=== PATIENT | female | born 1960 | race Caucasian/White ===

== ENCOUNTER 2017-01-19 17:03 | Inpatient (IN) ==
--- NOTE | 2017-01-19 17:11 | Emergency Department Note ---
Disposition Clinical Impression: Chest pain Disposition: Still a Patient Condition: Good Referrals: NO,PCP [Primary Care Provider] - Forms: ED Satisfaction Letter General Adult HPI - General Stated complaint: Chest Pain Time Seen by Provider: 01/19/17 17:07 - Related Data Home Medications Medication Instructions Recorded Confirmed Aspirin 81 mg PO DAILY 07/30/15 11/22/16 Budesonide/Formoterol 160/4.5 2 puff IH BIDR 07/30/15 11/22/16 [Symbicort] Clopidogrel [Plavix] 75 mg PO DAILY 07/30/15 11/22/16 Diltiazem [Cardizem] 30 mg PO Q8HR PRN 07/30/15 11/22/16 Febuxostat [Uloric] 40 mg PO DAILY 07/30/15 11/22/16 Furosemide [Lasix] 20 mg PO DAILY PRN 07/30/15 11/22/16 Isosorbide MONOnitrate (24 HR) 120 mg PO BID 07/30/15 11/22/16 [Imdur] Lisinopril [Zestril] 40 mg PO DAILY 07/30/15 11/22/16 Loratadine [Claritin] 10 mg PO DAILY 07/30/15 11/22/16 Methocarbamol [Robaxin] 500 mg PO DAILY PRN 07/30/15 11/22/16 Metoprolol [Lopressor] 75 mg PO BID 07/30/15 11/22/16 Omeprazole [PriLOSEC] 40 mg PO DAILY 07/30/15 11/22/16 Ranolazine [Ranexa] 500 mg PO BID 07/30/15 11/22/16 Previous Rx's Medication Instructions Recorded Mupirocin Calcium [Bactroban] 15 gm TP DAILY #15 cream..g. 06/12/15 Ascorbic Acid [Vitamin C] 1 tab PO DAILY #30 tablet 04/27/16 Ferrous Sulfate [Iron] 1 tab PO DAILY #30 capsule.er 09/10/16 Cholecalciferol (Vitamin D3) 1 tab PO QWEEK #14 tab 10/01/16 [Dialyvite Vitamin D3 Max] Cyanocobalamin (B-12) [Vitamin B12] 1 tab PO DAILY #90 tablet 11/02/16 Rivaroxaban [Xarelto] 1 tab PO DAILY #90 tablet 11/19/16 Allergies Allergy/AdvReac Type Severity Reaction Status Date / Time Erythromycin Base Allergy Anaphylaxis Verified 06/12/15 18:00 propoxyphene [From Darvon] Allergy Hives Verified 06/12/15 18:00 doxycycline AdvReac Difficulty Verified 11/27/16 08:33 Breathing ferric carboxymaltose AdvReac Gastrointestinal Verified 12/31/16 15:47 [From Injectafer] Upset montelukast [From Singulair] AdvReac Confusion Verified 11/27/16 08:33 simvastatin AdvReac Cramping Verified 11/27/16 08:33 of the Muscles Past Medical History - Past Medical History Medical history: Reports: asthma, COPD, hypertension, myocardial infarction Surgical history: Reports: angioplasty/stent, knee replacement Psychiatric history: Reports: anxiety, depression - Social History Smoking Status: Former smoker Smokeless Tobacco Status: No Alcohol use: Reports: none Drug use: Reports: none Course Vital Signs Temperature 97.1 F L 01/19/17 17:11 Pulse Rate 96 01/19/17 17:11 Respiratory Rate 20 01/19/17 17:11 Blood Pressure 176/101 01/19/17 17:11 O2 Sat by Pulse Oximetry 98 01/19/17 17:11 Temperature 97.1 F L 01/19/17 17:11 Pulse Rate 96 01/19/17 17:11 Respiratory Rate 20 01/19/17 17:11 Blood Pressure 176/101 01/19/17 17:11 O2 Sat by Pulse Oximetry 98 01/19/17 17:11 Oxygen Delivery Oxygen Delivery Room Air Attestation Statement - Attestation Attestation: I examined this patient and my medical decision-making was reviewed with the RECEIVING INSPECTOR/PA/Advanced Practice Nurse/Resident Physician. I agree with the documented findings, disposition and treatment plan as described except to the extent set forth below. [id number] time provided Patient presents with centrally located chest pain that radiates to her right chest and axillary region described as a "burning." Symptoms present for the last 2 hours at rest. She has a history of coronary stents deployed 2. She appears slightly anxious on exam. She relates to me that she did and unusual exercise program today involving her right upper extremity. She thinks this may be the cause of her pain 18:31: [address] Teresa at 7 PM pending repeat troponin and ECG. On coming physician to reevaluate patient and provide final disposition
[2017-01-19] MEDS ORDERED: Ondansetron 4 MG/2 ML VIAL IV ONE (17:24)
[2017-01-19] MEDS ORDERED: *HR* Morphine 2 MG/ML SYRINGE IV ONE (17:24)
[2017-01-19] MEDS ORDERED: Aspirin 81 MG TAB.CHEW PO STA (17:29)
--- NOTE | 2017-01-19 17:36 | Emergency Department Note ---
Disposition Clinical Impression: Atypical chest pain Disposition: Still a Patient Condition: Good Referrals: NO,PCP [Primary Care Provider] - Forms: ED Satisfaction Letter Chest Pain HPI - General Chief Complaint: ED Chest Pain Stated Complaint: Chest Pain Time Seen by Provider: 01/19/17 17:07 Source: patient, family Mode of arrival: ambulatory Limitations: no limitations Vital Signs Reviewed: Yes Nursing Notes Reviewed: Yes - History of Present Illness HPI Narrative: 56-year-old female history of hypertension, former smoker pack per day, COPD, DVT on Xarelto, CAD s/p 2 stents presents to the ED for chest pain. Describes a sharp burning sensation in the mid-sternum that radiates to the right axilla. She first noticed it 1300 today after doing new yoga exercises earlier this morning and celebrating her grandson's birthday. She has been carrying babies and moving things which she reports pulling her right arm further back than normal. She repeatedly believes that it is musculoskeletal, possibly overduing it today. Recently got a steroid injection in her right shoulder. Has associated dyspnea and nausea with the chest pain. However with her cardiac history wanted to be evaluated. Continues to have chest pain that is constant and worse with movement or palpation. She took 3 nitro without relief. Took her 81 mg ASA last night. Denies any recent illness, fever, cough, shortness of breath. History of DVT on Xarelto. Denies any recent long distance travel, surgery, hospitalizations. 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 Pt complaint: chest pain Severity scale (1-10): 8 - Related Data Home Medications Medication Instructions Recorded Confirmed Aspirin 81 mg PO DAILY 07/30/15 11/22/16 Budesonide/Formoterol 160/4.5 2 puff IH BIDR 07/30/15 11/22/16 [Symbicort] Clopidogrel [Plavix] 75 mg PO DAILY 07/30/15 11/22/16 Diltiazem [Cardizem] 30 mg PO Q8HR PRN 07/30/15 11/22/16 Febuxostat [Uloric] 40 mg PO DAILY 07/30/15 11/22/16 Furosemide [Lasix] 20 mg PO DAILY PRN 07/30/15 11/22/16 Isosorbide MONOnitrate (24 HR) 120 mg PO BID 07/30/15 11/22/16 [Imdur] Lisinopril [Zestril] 40 mg PO DAILY 07/30/15 11/22/16 Loratadine [Claritin] 10 mg PO DAILY 07/30/15 11/22/16 Methocarbamol [Robaxin] 500 mg PO DAILY PRN 07/30/15 11/22/16 Metoprolol [Lopressor] 75 mg PO BID 07/30/15 11/22/16 Omeprazole [PriLOSEC] 40 mg PO DAILY 07/30/15 11/22/16 Ranolazine [Ranexa] 500 mg PO BID 07/30/15 11/22/16 Previous Rx's Medication Instructions Recorded Mupirocin Calcium [Bactroban] 15 gm TP DAILY #15 cream..g. 06/12/15 Ascorbic Acid [Vitamin C] 1 tab PO DAILY #30 tablet 04/27/16 Ferrous Sulfate [Iron] 1 tab PO DAILY #30 capsule.er 09/10/16 Cholecalciferol (Vitamin D3) 1 tab PO QWEEK #14 tab 10/01/16 [Dialyvite Vitamin D3 Max] Cyanocobalamin (B-12) [Vitamin B12] 1 tab PO DAILY #90 tablet 11/02/16 Rivaroxaban [Xarelto] 1 tab PO DAILY #90 tablet 11/19/16 Allergies Allergy/AdvReac Type Severity Reaction Status Date / Time Erythromycin Base Allergy Anaphylaxis Verified 06/12/15 18:00 propoxyphene [From Darvon] Allergy Hives Verified 06/12/15 18:00 doxycycline AdvReac Difficulty Verified 11/27/16 08:33 Breathing ferric carboxymaltose AdvReac Gastrointestinal Verified 12/31/16 15:47 [From Injectafer] Upset montelukast [From Singulair] AdvReac Confusion Verified 11/27/16 08:33 simvastatin AdvReac Cramping Verified 11/27/16 08:33 of the Muscles All systems ED: reviewed and negative except as stated. Constitutional: Denies: fever, chills Cardiovascular: Reports: chest pain. Denies: palpitations, dyspnea on exertion Respiratory: Denies: cough, dyspnea Gastrointestinal: Reports: nausea. Denies: abdominal pain, vomiting, diarrhea Genitourinary: Denies: urgency Musculoskeletal: Denies: back pain, neck pain Integumentary: Denies: rash, abrasion Neurological: Denies: headache, weakness Psychiatric: Denies: anxiety Chest Pain PMH - Past Medical History Medical history: Reports: asthma, COPD, hypertension, myocardial infarction Surgical history: Reports: angioplasty/stent, knee replacement Psychiatric history: Reports: anxiety, depression - Social History Smoking Status: Former smoker Alcohol use: Reports: none Drug use: Reports: none Physical Exam - General Limitations: no limitations General appearance: alert, in no apparent distress, obese (morbidly) - Head Head exam: atraumatic, normocephalic, normal inspection - Eye Eye exam: Present: normal appearance, PERRL, EOMI - ENT ENT exam: normal exam, normal oropharynx, mucous membranes moist - Neck Neck exam: Present: normal inspection, full ROM, trachea midline - Chest Chest inspection: Present: normal inspection, symmetric chest wall rise, tenderness (right chest wall) - Respiratory Respiratory exam: Present: normal lung sounds bilaterally. Absent: respiratory distress, wheezes - Cardiovascular Cardiovascular exam: Present: regular rate, normal rhythm, normal heart sounds. Absent: systolic murmur, diastolic murmur - Abdominal Exam Abdominal exam: Present: soft (obese), Non-Tender, normal bowel sounds. Absent : tenderness, distention, guarding, rebound, rigidity - Extremities Exam Extremities exam: Present: normal inspection, full ROM, normal capillary refill. Absent: tenderness, pedal edema, calf tenderness - Neurological Exam Neurological exam: Present: alert, oriented X3 - Psychiatric Psychiatric exam: Present: normal affect, normal mood - Skin Skin exam: Present: warm, dry, intact, normal color. Absent: rash, cyanosis Course Course Narrative: 56-year-old female presents with chest pain. Occurred at 1300 today during some lifting and exercise. Pain has been constant is described as a burning sharp sensation radiating to the right axilla. She has taken 3 nitro without relief. Appears uncomfortable. She is hypertensive here, likely secondary to pain and discomfort. Heart's regular rate and rhythm. Tenderness on palpation to the right chest similar to her chest pain at this time. She has full range of motion to upper extremities. Lungs are clear auscultation bilaterally. Her abdomen is obese, soft and nontender nondistended. She has significant cardiac history will check troponin, EKG, chest x-ray basic labs. Morphine and Zofran for pain and nausea. Aspirin 324 mg ordered. HEART score 4 pending troponin. She will be signed out to nighttime team Dr. Huff and Dr. Teresa for further management and final disposition. - Reevaluation(s) Reevaluation #1: Patient presents with atypical chest pain. Pain has subsided. Recommend repeat troponin 2 hours. She will be signed out to nighttime team Dr. Huff and Dr. Teresa for further management and final disposition. Time: 18:38 Vital Signs Temperature 97.1 F L 01/19/17 17:11 Pulse Rate 96 01/19/17 17:11 Respiratory Rate 20 01/19/17 17:11 Blood Pressure 176/101 01/19/17 17:11 O2 Sat by Pulse Oximetry 98 01/19/17 17:11 Temperature 97.1 F L 01/19/17 17:11 Pulse Rate 96 01/19/17 17:11 Respiratory Rate 20 01/19/17 17:11 Blood Pressure 176/101 01/19/17 17:11 O2 Sat by Pulse Oximetry 98 01/19/17 17:11 Oxygen Delivery Oxygen Delivery Room Air Chest Pain - Medical Records Medical records reviewed: Yes I reviewed the patient's medical records. - Lab Data Lab results reviewed: Yes I reviewed the patient's lab results. Result diagrams: 01/19/17 18:30 Lab Results 01/19/17 Range/Units 18:30 WBC 13.5 H (4.3-11.1) K/mcL RBC 3.96 (3.82-4.97) M/mcL Hgb 12.4 (11.5-15.4) g/dL Hct 38.1 (35.3-44.9) % MCV 96.2 (83.0-100.0) fL MCH 31.3 (28.0-33.3) pg MCHC 32.5 (31.6-35.5) g/dL RDW 13.1 (11.5-14.5) % Plt Count 294 (140-400) K/mcL MPV 10.2 (9.4-12.4) fL Immature Gran % 1.4 (0-4) % Seg Neutrophils % 86.9 % Lymphocytes % 7.2 % Monocytes % 3.4 % Eosinophils % 0.7 % Basophils % 0.4 % Neutrophils # 11.8 H (1.6-8.9) K/mcL Lymphocytes # 1.0 (0.6-4.6) K/mcL Monocytes # 0.5 (0.0-1.3) K/mcL Eosinophils # 0.1 (0.0-0.6) K/mcL Basophils # 0.1 (0.0-0.2) K/mcL - Radiology Data Radiology results reviewed: Yes I reviewed the patient's radiology results. Chest X-Ray 01/19/17 17:11 IMPRESSION: No evidence for acute cardiopulmonary process. D/ / Ramin Wynne MD / Ramin Wynne MD Interpreting Provider: Ramin Wynne MD - EKG Data EKG attestation: Yes I reviewed and interpreted this EKG. EKG results narrative: EKG performed 1712 normal sinus rhythm 97 bpm, poor R-R wave progression, normal axis, there are non-specific ST-T wave abnormalities seen in V3. Intervals are within normal limits LA interval 166 QRS 88 QT QTC 323 377. Compared to old EKG performed 05/17/2016 shows non-specific T wave abnormality and good R-R wave progression . No acute ischemic changes. Heart Score - Score History: Slightly Suspicious EKG: Non Specific repolarisation Disturbance Age: 45-65 Risk Factors: Equal/Greater than 3 risk factor or history of atherosclerotic disease S.B.A.R. - [email or web address] Situation: Demographics, MOA Background: Presenting Complaint, Relevant PMH, Meds, & Allergies Assessment: Vital Signs, Course and respsone to treatment, Exam Concerns, Patient/Family Expectation, Pertinant Lab Results, Outstanding Labs Recommendation: Barrier(s) to disposition, Recommendation based on pending studies, treatments, or consults S.B.A.R. Report Given to: Dr. Daria Acevedo Repor Time: 19:00
[2017-01-19 18:42] LABS: Basophils # 0.1 K/mcL (0.0-0.2); Basophils % 0.4 %; Eosinophils # 0.1 K/mcL (0.0-0.6); Eosinophils % 0.7 %; Hematocrit 38.1 % (35.3-44.9); Hemoglobin 12.4 g/dL (11.5-15.4); Immature Granulocytes % 1.4 % (0-4); Lymphocytes % 7.2 %; Mean Corpuscular HGB Conc 32.5 g/dL (31.6-35.5); Mean Corpuscular Hemoglobin 31.3 pg (28.0-33.3); Mean Corpuscular Volume 96.2 fL (83.0-100.0); Mean Platelet Volume 10.2 fL (9.4-12.4); Monocytes # 0.5 K/mcL (0.0-1.3); Monocytes % 3.4 %; Neutrophils # 11.8 K/mcL (1.6-8.9); Platelet Count 294 K/mcL (140-400); Red Blood Count 3.96 M/mcL (3.82-4.97); Red Cell Distribution Width 13.1 % (11.5-14.5); Segmented Neutrophils % 86.9 %
[2017-01-19 18:45] LABS: INR 1.2; Prothrombin Time 13.3 Seconds (9.4-12.1)
[2017-01-19 18:47] LABS: Activated Partial Thrombo Time 36.4 Seconds (26.0-36.0)
[2017-01-19 18:52] LABS: BUN/Creatinine Ratio 16 (6-26); Blood Urea Nitrogen 15 mg/dL (7-20); Carbon Dioxide 22 mEq/L (19-29); Chloride 105 mEq/L (98-109); Glucose 128 mg/dL (70-99); Osmolality,Calculated 286 (280-300); Sodium 137 mEq/L (136-145); eGFR For African Americans > 60 (> 60); eGFR For Non-African Americans > 60 (> 60)
[2017-01-19] MEDS ORDERED: *HR* Morphine 2 MG/ML SYRINGE IVP ONE (19:18)
--- NOTE | 2017-01-19 19:18 | Emergency Department Note ---
Disposition Clinical Impression: Chest pain Qualifiers: Chest pain type: unspecified Qualified Code(s): R07.9 - Chest pain, unspecified Disposition: Admitted As Inpatient Condition: Undetermined Referrals: NO,PCP [Non-Partnered Physician] - Forms: ED Satisfaction Letter Time of Disposition: 19:25 Chest Pain HPI - General Chief Complaint: ED Chest Pain Stated Complaint: Chest Pain Time Seen by Provider: 01/19/17 17:07 Source: patient, family Mode of arrival: ambulatory Limitations: no limitations Vital Signs Reviewed: Yes Nursing Notes Reviewed: Yes - History of Present Illness HPI Narrative: 56-year-old female with CAD, hypertension arrives to [facility] emergency department complaining of bilateral chest pain primarily in the right chest wall radiating to right axilla that began earlier this afternoon. The patient did have some dyspnea, nausea, diaphoresis associated with this. The patient states she had an [place] in the past where she did receive 2 cardiac stents at that time. The patient does state she has been working out recently but states this does not feel like her previous arthritis or muscle aches. Patient did take 4 nitroglycerin prior to arrival to the emergency department which did not help the patient's pain. 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 Onset: during rest Pain Location: left chest, right chest Severity: moderate Severity scale (1-10): 6 Quality: aching, heaviness Pain Radiation: back Improves with: nothing Worsens with: palpation Associated symptoms: Reports: nausea, diaphoresis, dyspnea Treatments prior to arrival chest pain: nitroglycerin - Related Data On Oral Contraceptives: No Home Medications Medication Instructions Recorded Confirmed Aspirin 81 mg PO DAILY 07/30/15 11/22/16 Budesonide/Formoterol 160/4.5 2 puff IH BIDR 07/30/15 11/22/16 [Symbicort] Clopidogrel [Plavix] 75 mg PO DAILY 07/30/15 11/22/16 Diltiazem [Cardizem] 30 mg PO Q8HR PRN 07/30/15 11/22/16 Febuxostat [Uloric] 40 mg PO DAILY 07/30/15 11/22/16 Furosemide [Lasix] 20 mg PO DAILY PRN 07/30/15 11/22/16 Isosorbide MONOnitrate (24 HR) 120 mg PO BID 07/30/15 11/22/16 [Imdur] Lisinopril [Zestril] 40 mg PO DAILY 07/30/15 11/22/16 Loratadine [Claritin] 10 mg PO DAILY 07/30/15 11/22/16 Methocarbamol [Robaxin] 500 mg PO DAILY PRN 07/30/15 11/22/16 Metoprolol [Lopressor] 75 mg PO BID 07/30/15 11/22/16 Omeprazole [PriLOSEC] 40 mg PO DAILY 07/30/15 11/22/16 Ranolazine [Ranexa] 500 mg PO BID 07/30/15 11/22/16 Previous Rx's Medication Instructions Recorded Mupirocin Calcium [Bactroban] 15 gm TP DAILY #15 cream..g. 06/12/15 Ascorbic Acid [Vitamin C] 1 tab PO DAILY #30 tablet 04/27/16 Ferrous Sulfate [Iron] 1 tab PO DAILY #30 capsule.er 09/10/16 Cholecalciferol (Vitamin D3) 1 tab PO QWEEK #14 tab 10/01/16 [Dialyvite Vitamin D3 Max] Cyanocobalamin (B-12) [Vitamin B12] 1 tab PO DAILY #90 tablet 11/02/16 Rivaroxaban [Xarelto] 1 tab PO DAILY #90 tablet 11/19/16 Allergies Allergy/AdvReac Type Severity Reaction Status Date / Time Erythromycin Base Allergy Anaphylaxis Verified 06/12/15 18:00 propoxyphene [From Darvon] Allergy Hives Verified 06/12/15 18:00 doxycycline AdvReac Difficulty Verified 11/27/16 08:33 Breathing ferric carboxymaltose AdvReac Gastrointestinal Verified 12/31/16 15:47 [From Injectafer] Upset montelukast [From Singulair] AdvReac Confusion Verified 11/27/16 08:33 simvastatin AdvReac Cramping Verified 11/27/16 08:33 of the Muscles All systems ED: reviewed and negative except as stated. Constitutional: Denies: fever, chills Cardiovascular: Reports: chest pain. Denies: palpitations, dyspnea on exertion Respiratory: Denies: cough, dyspnea Gastrointestinal: Reports: nausea. Denies: abdominal pain, vomiting, diarrhea Genitourinary: Denies: urgency Musculoskeletal: Denies: back pain, neck pain Integumentary: Denies: rash, abrasion Neurological: Denies: headache, weakness Psychiatric: Denies: anxiety Chest Pain PMH - Past Medical History Medical history: Reports: asthma, COPD, hypertension, myocardial infarction Surgical history: Reports: angioplasty/stent, knee replacement Psychiatric history: Reports: anxiety, depression - Social History Smoking Status: Former smoker Alcohol use: Reports: none Drug use: Reports: none Physical Exam Physical Exam: General: Patient alert, in mild acute distress due to pain, not lethargic, patient is diaphoretic HEENT: Head normal inspection, atraumatic, PERRLA, oropharynx grossly intact and normal, trachea midline, no JVD Chest: Nontraumatic, chest wall is tender to palpation, normal chest rise CV: RRR with no murmurs, rubs, gallops Respiratory: Breath sounds on auscultation bilaterally, no rales, rhonchi, wheezes. Abdomen: Normal inspection, Normal bowel sounds 4 quadrants, nontender to palpation : Patient deferred Extremities: Normal inspection, full range of motion, appropriate pulses, capillary refill under 2 seconds Neurological: Patient alert and oriented 3, cranial nerves II through XII grossly intact, GCS 15 Skin: Warm, intact, no rashes noted - General Limitations: no limitations General appearance: alert, in no apparent distress, obese (morbidly) Course Vital Signs Temperature 97.1 F L 01/19/17 17:11 Pulse Rate 96 01/19/17 17:11 Respiratory Rate 20 01/19/17 17:11 Blood Pressure 176/101 01/19/17 17:11 O2 Sat by Pulse Oximetry 98 01/19/17 17:11 Temperature 97.1 F L 01/19/17 17:11 Pulse Rate 91 01/19/17 18:56 Respiratory Rate 20 01/19/17 18:56 Blood Pressure 166/97 01/19/17 19:09 O2 Sat by Pulse Oximetry 95 01/19/17 18:56 Oxygen Delivery Oxygen Delivery Room Air Chest Pain - MDM Narrative Medical decision making narrative: Patient has a heart score of 5 at this time. The patient's chest pain is not well controlled. She is received 4 nitroglycerin prior to arrival 6 nitroglycerin at roughly 1520, we will be administering another 6 of morphine at this time. The patient is diaphoretic, she has ST depression noted on leads V3. The patient is alone Xarelto at this time. The patient states that she is mildly nauseated at this time. Given the patient's symptoms and past medical history of heart disease combined with her diaphoresis the patient will be admitted to the hospital for observation. Accepted by Dr. Olivares - Lab Data Lab results reviewed: Yes I reviewed the patient's lab results. Result diagrams: 01/19/17 18:30 01/19/17 18:30 Lab Results 01/19/17 01/19/17 01/19/17 Range/Units 18:30 18:30 18:30 WBC 13.5 H (4.3-11.1) K/mcL RBC 3.96 (3.82-4.97) M/mcL Hgb 12.4 (11.5-15.4) g/dL Hct 38.1 (35.3-44.9) % MCV 96.2 (83.0-100.0) fL MCH 31.3 (28.0-33.3) pg MCHC 32.5 (31.6-35.5) g/dL RDW 13.1 (11.5-14.5) % Plt Count 294 (140-400) K/mcL MPV 10.2 (9.4-12.4) fL Immature Gran % 1.4 (0-4) % Seg Neutrophils % 86.9 % Lymphocytes % 7.2 % Monocytes % 3.4 % Eosinophils % 0.7 % Basophils % 0.4 % Neutrophils # 11.8 H (1.6-8.9) K/mcL Lymphocytes # 1.0 (0.6-4.6) K/mcL Monocytes # 0.5 (0.0-1.3) K/mcL Eosinophils # 0.1 (0.0-0.6) K/mcL Basophils # 0.1 (0.0-0.2) K/mcL PT 13.3 H (9.4-12.1) Seconds INR 1.2 APTT 36.4 H (26.0-36.0) Seconds Sodium 137 (136-145) mEq/L Potassium 5.0 H (3.5-4.5) mEq/L Chloride 105 (98-109) mEq/L Carbon Dioxide 22 (19-29) mEq/L BUN 15 (7-20) mg/dL Creatinine 0.91 (0.57-1.11) mg/dL Est GFR ( Amer) > 60 (> 60) Est GFR (Non-Af Amer) > 60 (> 60) BUN/Creatinine Ratio 16 (6-26) Glucose 128 H (70-99) mg/dL Calculated Osmolality 286 (280-300) Calcium 9.0 (8.6-10.8) mg/dL Troponin I (0-0.03) ng/mL 01/19/17 Range/Units 18:30 WBC (4.3-11.1) K/mcL RBC (3.82-4.97) M/mcL Hgb (11.5-15.4) g/dL Hct (35.3-44.9) % MCV (83.0-100.0) fL MCH (28.0-33.3) pg MCHC (31.6-35.5) g/dL RDW (11.5-14.5) % Plt Count (140-400) K/mcL MPV (9.4-12.4) fL Immature Gran % (0-4) % Seg Neutrophils % % Lymphocytes % % Monocytes % % Eosinophils % % Basophils % % Neutrophils # (1.6-8.9) K/mcL Lymphocytes # (0.6-4.6) K/mcL Monocytes # (0.0-1.3) K/mcL Eosinophils # (0.0-0.6) K/mcL Basophils # (0.0-0.2) K/mcL PT (9.4-12.1) Seconds INR APTT (26.0-36.0) Seconds Sodium (136-145) mEq/L Potassium (3.5-4.5) mEq/L Chloride (98-109) mEq/L Carbon Dioxide (19-29) mEq/L BUN (7-20) mg/dL Creatinine (0.57-1.11) mg/dL Est GFR ( Amer) (> 60) Est GFR (Non-Af Amer) (> 60) BUN/Creatinine Ratio (6-26) Glucose (70-99) mg/dL Calculated Osmolality (280-300) Calcium (8.6-10.8) mg/dL Troponin I 0.01 (0-0.03) ng/mL - Radiology Data Radiology results reviewed: Yes I reviewed the patient's radiology results. - EKG Data EKG attestation: Yes I reviewed and interpreted this EKG. EKG results narrative: Heart rate 97 bpm. ME interval 166 ms. QTC 377 ms. Normal axis. Normal sinus rhythm. No ST elevation there is small amount of ST depression noted in lead V3 which is new from from 06/17/2016. Heart Score - Score History: Moderately Suspicious EKG: Non Specific repolarisation Disturbance Age: 45-65 Risk Factors: Equal/Greater than 3 risk factor or history of atherosclerotic disease Troponin: Less than normal limit HEART Score Total: 5
[2017-01-19] MEDS ORDERED: Ondansetron 4 MG/2 ML VIAL IVP ONE (20:06)
[2017-01-20] MEDS ORDERED: *HR* Morphine 2 MG/ML SYRINGE IVP ONE (03:48)
[2017-01-20] MEDS ORDERED: *HR* Morphine 2 MG/ML SYRINGE ONE (03:51)
[2017-01-20] MEDS ORDERED: Ondansetron 4 MG/2 ML VIAL IVP PRN (03:57)
[2017-01-20] MEDS ORDERED: *HR* Morphine 2 MG/ML SYRINGE IVP PRN ×2 (03:57→05:05)
[2017-01-20] MEDS ORDERED: Naloxone 0.4 MG/ML INJ IVP PRN (03:57)
--- NOTE | 2017-01-20 04:16 | Internal Med History&Physical ---
Date of Encounter: 01/20/17 Time of Encounter: 04:10 Assessment and Plan (1) Chest pain Current visit: Yes Status: Acute 1. I suspect this is musculoskeletal in nature. 2. Will cycle troponins, EKG's, and order ECHO. 3. Pain control and re-evaluate as work-up in progress. Qualifiers: Chest pain type: intercostal pain Qualified Code(s): R07.82 - Intercostal pain (2) CAD (coronary artery disease) Current visit: No Status: Chronic 1. Cycle troponins and EKG's given history of CAD. 2. Verify and resume home meds. 3. Monitor closely and consult cardiology if symptoms persists and/or EKG changes are significant. Qualifiers: Coronary Disease-Associated Artery/Lesion type: [place] artery [place] vs. transplanted heart: [place] heart Associated angina: without angina Qualified Code(s): I25.10 - Atherosclerotic heart disease of [place] coronary artery without angina pectoris (3) DVT prophylaxis Current visit: No Status: Acute 1. On Xarelto per home dosing. Internal Medicine - H&P: HPI Chief complaint: chest pain Admitted From: Emergency Dept Plans for Post Hospital Care: Home History of present illness: Ms. Anguiano is a 56 year old female who presents with complaints of chest pain and dyspnea. She has been having this pain off and on for months but it was worse tonight, and this prompted her to come to the ER. Workup was negative. Nonetheless, she was admitted to the hospitalist service. Upon my assessment of the patient, she is complaining of pain in her right side of her chest. She has some associated nausea and diaphoresis. She states the pain is not the same as her prior anginal pain and/or TN. She denies any hemoptysis. She has some mild exertional dyspnea. She denies any fevers, chills, cough, or chest congestion. She has been battling right shoulder issues and has been referred for shoulder surgery in the recent past. She denies any known gallbladder problems. She states she has been worked up for gallbladder numerous times without any diagnosis. Food does not seem to exacerbate her chest pain symptoms. Past Med Surg Social Fam HX - Past Medical History Attestation: Yes The following information was validated with the patient. Source: patient, old records reviewed Medical history: asthma, COPD, DVT, hypertension, myocardial infarction, other ( PE) Psychiatric history: anxiety, depression - Past Surgical History Surgical History: angioplasty/stent, knee replacement - Social History Smoking Status: Former smoker Smokeless Tobacco Status: No Alcohol use: none Drug use: none Current living situation: Home Activity Level: Independent ambulation Recent Out of Country Travel Within the Last 8 Weeks: No - Family History Father Living Status: Hx Family Cancer: Yes Internal Medicine - H&P: Meds Mupirocin Calcium [Bactroban] 15 gm TP DAILY #15 cream..g. 06/12/15 [Rx] Aspirin 81 mg PO DAILY 07/30/15 [History] Budesonide/Formoterol 160/4.5 [Symbicort] 2 puff IH BIDR 07/30/15 [History] Clopidogrel [Plavix] 75 mg PO DAILY 07/30/15 [History] Diltiazem [Cardizem] 30 mg PO Q8HR PRN 07/30/15 [History] Febuxostat [Uloric] 40 mg PO DAILY 07/30/15 [History] Furosemide [Lasix] 20 mg PO DAILY PRN 07/30/15 [History] Isosorbide MONOnitrate (24 HR) [Imdur] 120 mg PO BID 07/30/15 [History] Lisinopril [Zestril] 40 mg PO DAILY 07/30/15 [History] Loratadine [Claritin] 10 mg PO DAILY 07/30/15 [History] Methocarbamol [Robaxin] 500 mg PO DAILY PRN 07/30/15 [History] Metoprolol [Lopressor] 75 mg PO BID 07/30/15 [History] Omeprazole [PriLOSEC] 40 mg PO DAILY 07/30/15 [History] Ranolazine [Ranexa] 500 mg PO BID 07/30/15 [History] Ascorbic Acid [Vitamin C] 1 tab PO DAILY #30 tablet 04/27/16 [Rx] Ferrous Sulfate [Iron] 1 tab PO DAILY #30 capsule.er 09/10/16 [Rx] Cholecalciferol (Vitamin D3) [Dialyvite Vitamin D3 Max] 1 tab PO QWEEK #14 tab 10/01/16 [Rx] Cyanocobalamin (B-12) [Vitamin B12] 1 tab PO DAILY #90 tablet 11/02/16 [Rx] Rivaroxaban [Xarelto] 1 tab PO DAILY #90 tablet 11/19/16 [Rx] Allergies Erythromycin Base Allergy (Verified 06/12/15 18:00) Anaphylaxis propoxyphene [From Darvon] Allergy (Verified 06/12/15 18:00) Hives doxycycline Adverse Reaction (Verified 11/27/16 08:33) Difficulty Breathing ferric carboxymaltose [From Injectafer] Adverse Reaction (Verified 12/31/16 15: 47) Gastrointestinal Upset montelukast [From Singulair] Adverse Reaction (Verified 11/27/16 08:33) Confusion simvastatin Adverse Reaction (Verified 11/27/16 08:33) Cramping of the Muscles - Constitutional Constitutional: no chills, no fever(s), no night sweats - EENT Eyes: no blurry vision, no change in vision Ears: no ear pain, no tinnitus Nose, mouth and throat: no nasal congestion, no sinus pressure, no sore throat - Cardiovascular Cardiovascular ROS IM: chest pain, diaphoresis, dyspnea, no lightheadedness, no palpitations, no syncope - Respiratory Respiratory: no cough, no hemoptysis, no wheezing, no chest congestion, no excessive phlegm production - Gastrointestinal Gastrointestinal: abdominal pain (RUQ), no diarrhea, no hematemesis, no hematochezia, no melena, no nausea, no vomiting - Genitourinary Genitourinary: no dysuria, no flank pain, no hematuria - Musculoskeletal Musculoskeletal ROS IM: no back pain, no joint swelling - Integumentary Integumentary IM: no rash, no jaundice - Neurological Neurological ROS: no disequilibrium, no dizziness, no focal weakness, no frequent falls - Psychiatric Psychiatric: no anxiety, no depression - Endocrine Endocrine IM: no polydipsia, no polyuria - Hematologic/Lymphatic Hematologic/Lymphatic: easy bruising - Allergic/Immunologic Allergic/Immunologic: no wheezing, no GI upset with certain foods - Constitutional Vitals: Temp Pulse Resp BP Pulse Ox 97.5 F L 84 16 128/85 96 01/20/17 00:23 01/20/17 00:23 01/20/17 00:23 01/20/17 00:23 01/20/17 00:23 General appearance: Present: cooperative, mild distress, A&O X 3, pleasant - Head Head exam: Present: atraumatic, normal inspection - Expanded Head Exam Head exam expanded: Absent: abrasion, contusion, general tenderness - Eye Eye exam: Present: EOMI, normal appearance, PERRL. Absent: scleral icterus Pupils: Present: normal accommodation - ENT ENT exam: Present: normal exam, normal oropharynx - Neck Neck exam general surgery: Present: full ROM, supple. Absent: lymphadenopathy, tenderness, nuchal rigidity - Expanded Neck Exam Neck exam: Present: carotid bruit - Respiratory Respiratory exam: Present: chest wall tenderness (pain easily reproducible along RUSB), CTAB. Absent: accessory muscle use, rales, respiratory distress, rhonchi, wheezes - Cardiovascular Cardiovascular exam: Present: distant heart sounds, RRR, +S1, +S2. Absent: diastolic murmur, systolic murmur - GI/Abdominal GI/Abdominal exam: Present: normal bowel sounds, soft. Absent: guarding, hepatomegaly, rebound, splenomegaly, tenderness Additional comments: obese - Extremities Exam Extremities exam: Present: full ROM, warm. Absent: calf tenderness, joint swelling, pedal edema - Back Exam Back exam: Present: normal inspection. Absent: CVA tenderness (L), CVA tenderness (R) - Neurological Exam Neurological exam: Present: alert, CN II-XII intact, oriented X3, no focal deficits - Psychiatric Psychiatric exam: Present: normal affect, normal mood - Skin Skin exam: Present: dry, warm. Absent: rash Internal Med - H&P Results - Labs CBC & Chem 7: 01/19/17 18:30 01/19/17 18:30 - EKG Data -: EKG Interpreted by Myself EKG shows normal: sinus rhythm - EKG Data Prior EKG available for review: yes EKG comments: 01/20/17 04:26 Sinus rhythm with subtle ST-T depression in V4-V6. - Impressions Sinus rhythm; Subtle ST-T changes laterally. - Diagnostic Studies Chest x-ray Status: image reviewed by me (negative) - VTE Reasons for not Prescribing Prophylaxis: Not indicated-Anticoagulated or INR therapeutic
[2017-01-20] MEDS: 0.9 % Sodium Chloride 1,000 ML IVC SCH ×3 (04:40→18:19)
[2017-01-20] MEDS: Pantoprazole 40 MG VIAL IVP SCH (04:40)
[2017-01-20 05:44] LABS: Basophils # 0.1 K/mcL (0.0-0.2); Basophils % 0.5 %; Eosinophils # 0.1 K/mcL (0.0-0.6); Eosinophils % 0.4 %; Hematocrit 40.8 % (35.3-44.9); Hemoglobin 12.6 g/dL (11.5-15.4); Immature Granulocytes % 1.4 % (0-4); Lymphocytes # 1.4 K/mcL (0.6-4.6); Lymphocytes % 12.6 %; Mean Corpuscular HGB Conc 30.9 g/dL (31.6-35.5); Mean Corpuscular Hemoglobin 30.1 pg (28.0-33.3); Mean Corpuscular Volume 97.6 fL (83.0-100.0); Mean Platelet Volume 10.2 fL (9.4-12.4); Monocytes # 0.6 K/mcL (0.0-1.3); Monocytes % 4.8 %; Neutrophils # 9.1 K/mcL (1.6-8.9); Platelet Count 323 K/mcL (140-400); Red Blood Count 4.18 M/mcL (3.82-4.97); Segmented Neutrophils % 80.3 %
[2017-01-20 06:09] LABS: Alanine Aminotransferase 56 Units/L (0-55); Albumin 3.6 g/dL (3.5-5.0); Alkaline Phosphatase 153 Units/L (38-126); Aspartate Amino Transferase 37 Units/L (5-34); BUN/Creatinine Ratio 15 (6-26); Bilirubin,Total 0.3 mg/dL (0.2-1.2); Blood Urea Nitrogen 13 mg/dL (7-20); Calcium 9.3 mg/dL (8.6-10.8); Carbon Dioxide 20 mEq/L (19-29); Chloride 105 mEq/L (98-109); Chol/HDL Ratio 4.8 (0-4.9); Cholesterol 246 mg/dL (< 200); Globulin 3.7 g/dL (2.4-3.5); Glucose 123 mg/dL (70-99); HDL Cholesterol 51 mg/dL (40-59); LDL Cholesterol,Calculated 171 mg/dL (0-99); Magnesium 2.2 mg/dL (1.6-2.6); Osmolality,Calculated 287 (280-300); Potassium 4.6 mEq/L (3.5-4.5); Sodium 138 mEq/L (136-145); Total Protein 7.3 g/dL (6.0-8.3); Triglycerides 122 mg/dL (< 150); eGFR For African Americans > 60 (> 60); eGFR For Non-African Americans > 60 (> 60)
[2017-01-20] MEDS ORDERED: *HR* Promethazine 25 MG/ML VIAL IVP PRN (06:17)
[2017-01-20] MEDS ORDERED: Nitroglycerin 1 INCH/GM PACKET TP ONE (06:26)
[2017-01-20] MEDS ORDERED: Nitroglycerin 1 INCH/GM PACKET ONE (06:32)
[2017-01-20] MEDS: *HR* HYDROmorphone (PF) 1 MG/ML SYRINGE IVP PRN ×3 (06:34→23:43)
[2017-01-20] MEDS: Budesonide/Formoterol 160/4.5 MDI IH SCH ×2 (07:50→21:53)
[2017-01-20] MEDS: Ranolazine 500 MG TAB.ER.12H PO SCH ×2 (09:54→22:19)
[2017-01-20] MEDS: Aspirin 81 MG TAB.CHEW PO SCH (09:54)
[2017-01-20] MEDS: Isosorbide MONOnitrate (24 HR) 60 MG TAB.ER.24H PO SCH ×2 (09:54→22:20)
--- NOTE | 2017-01-20 09:54 | Cardiology Consult Note ---
Date of Encounter: 01/20/17 Time of Encounter: 09:52 Assessment and Plan (1) NSTEMI (non-ST elevated myocardial infarction) Current Visit: Yes Status: Acute Troponins 0.00, 0.62. No other explanation for troponin elevation. Symptoms largely atypical, chest pain is reproducible. No significant EKG changes. Known CAD hx with remote hx of PCI and most recent LHC in 2012--at that time Proximal LAD had patent stents present from a previous procedure. There was 30% stenosis in the Mid LAD, 30% stenosis in the Mid Circumflex, 40% stenosis in the 1st Marginal, 50% stenosis in the Mid RCA. Given elevated troponin and known CAD hx, recommend [facility] to further evaluate. R/B /A discussed and pt agrees to proceed. Last dose of Xarelto yesterday morning. Check echo as well. Echo 2014 EF preserved. Not on heparin gtt since she had Xarelto yesterday morning. ASA, Plavix, Statin, BB, GEMA-I. 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 On Xarelto 20mg daily at home, last dose received yesterday morning. LHC today. Plan to resume Xarelto after. Pt currently on triple therapy. Will re- evaluate if Plavix is necessary after [facility]. Qualifiers: DVT location: lower extremity Affected thrombotic vein of extremity: unspecified vein of extremity Laterality: unspecified laterality Chronicity : unspecified Qualified Code(s): I82.409 - Acute embolism and thrombosis of unspecified deep veins of unspecified lower extremity (3) CAD (coronary artery disease) Current Visit: No Status: Chronic Hx of Prox LAD stent. [facility] 2012 without intervention. ASA, Plavix, Statin, BB, GEMA-I, nitrates. Qualifiers: Coronary Disease-Associated Artery/Lesion type: [place] artery [place] vs. transplanted heart: [place] heart Associated angina: without angina Qualified Code(s): I25.10 - Atherosclerotic heart disease of [place] coronary artery without angina pectoris Discussion w patient/family: The assessment and plan as outlined above was discussed with the patient and/or family members who expressed understanding and agreement. All questions were answered. Thank you for involving us in the care of your patient. Please call with any questions. I will discuss all the above with Dr. Guajardo and make changes as necessary. History of Present Illness Consult date: 01/20/17 Requesting physician: Tony Myers Consult reason: elevated troponin Chief complaint: chest pain History of present illness: Ms. Anguiano is a 56 year old female with PMH of CAD s/p PCI in remote past, asthma /COPD, DVT, HTN that presented to ED yesterday with complaints of chest pain. She reports she got up to shower yesterday, tried to do some yoga poses and got pain in her right arm and chest. She brushed it off and went about her day, but the chest pain continued to worsen. It is described as pressure. It worsened after she ate and she started having pain between her shoulder blades, experienced nausea and diaphoresis. States she took 3 nitro with minimal relief after 3rd. Initial troponin negative, then 0.62 and cardiology was consulted. Recent CV testing: Echo 03/03/15 EF 60%, mild diastolic dysfunction. C 08/24/13 Impressions: There is mild to moderate three vessel coronary artery disease. The left ventricle is normal and has normal contractility, EF 55 %. The LMCA is angiographically free of disease. The Proximal LAD has patent stents present from a previous procedure. There is a 30% stenosis in the Mid LAD. There is a 30% stenosis in the Mid Circumflex. There is a 40% stenosis in the 1st Marginal. There is a 50% stenosis in the Mid RCA. Past Med Surg Social Fam HX - Past Medical History Medical history: asthma, COPD, DVT, hypertension, myocardial infarction, other ( PE) Psychiatric history: anxiety, depression - Past Surgical History Surgical History: angioplasty/stent, knee replacement - Social History Smoking Status: Former smoker Smokeless Tobacco Status: No Alcohol use: none Drug use: none - Family History Father Living Status: Hx Family Cancer: Yes Medications and Allergies Mupirocin Calcium [Bactroban] 15 gm TP DAILY #15 cream..g. 06/12/15 [Rx] Aspirin 81 mg PO DAILY 07/30/15 [History] Budesonide/Formoterol 160/4.5 [Symbicort] 2 puff IH BIDR 07/30/15 [History] Clopidogrel [Plavix] 75 mg PO DAILY 07/30/15 [History] Diltiazem [Cardizem] 30 mg PO Q8HR PRN 07/30/15 [History] Febuxostat [Uloric] 40 mg PO DAILY 07/30/15 [History] Furosemide [Lasix] 20 mg PO DAILY 07/30/15 [History] Isosorbide MONOnitrate (24 HR) [Imdur] 120 mg PO BID 07/30/15 [History] Lisinopril [Zestril] 40 mg PO DAILY 07/30/15 [History] Loratadine [Claritin] 10 mg PO DAILY 07/30/15 [History] Methocarbamol [Robaxin] 500 mg PO TID 07/30/15 [History] Metoprolol [Lopressor] 75 mg PO BID 07/30/15 [History] Omeprazole [PriLOSEC] 40 mg PO DAILY 07/30/15 [History] Ranolazine [Ranexa] 500 mg PO BID 07/30/15 [History] Ascorbic Acid [Vitamin C] 1 tab PO DAILY #30 tablet 04/27/16 [Rx] Ferrous Sulfate [Iron] 1 tab PO DAILY #30 capsule.er 09/10/16 [Rx] Cholecalciferol (Vitamin D3) [Dialyvite Vitamin D3 Max] 1 tab PO QWEEK #14 tab 10/01/16 [Rx] Cyanocobalamin (B-12) [Vitamin B12] 1 tab PO DAILY #90 tablet 11/02/16 [Rx] Rivaroxaban [Xarelto] 1 tab PO DAILY #90 tablet 11/19/16 [Rx] Allergies Erythromycin Base Allergy (Verified 06/12/15 18:00) Anaphylaxis propoxyphene [From Darvon] Allergy (Verified 06/12/15 18:00) Hives doxycycline Adverse Reaction (Verified 11/27/16 08:33) Difficulty Breathing ferric carboxymaltose [From Injectafer] Adverse Reaction (Verified 12/31/16 15: 47) Gastrointestinal Upset montelukast [From Singulair] Adverse Reaction (Verified 11/27/16 08:33) Confusion simvastatin Adverse Reaction (Verified 11/27/16 08:33) Cramping of the Muscles All Systems Review: A 10-system review of systems was performed and is negative for pertinent findings except as documented above in the HPI. - Constitutional Constitutional: fatigue - Cardiovascular Cardiovascular: as per HPI, chest pain at rest, diaphoresis, dyspnea on exertion - Respiratory Respiratory: dyspnea - Gastrointestinal Gastrointestinal: nausea Physical Examination Vital Signs, Last 4 Hours Temp Pulse Resp BP Pulse Ox 01/20/17 07:51 18 96 01/20/17 07:34 96.3 F L 105 20 141/89 97 Vital Signs Temp Pulse Resp BP Pulse Ox 01/20/17 07:51 18 96 01/20/17 07:34 96.3 F L 105 20 141/89 97 01/20/17 04:13 97.5 F L 99 16 163/98 97 01/20/17 00:23 97.5 F L 84 16 128/85 96 01/19/17 23:30 95 01/19/17 21:40 97.4 F L 97 16 92/61 95 01/19/17 21:09 16 158/71 01/19/17 19:09 166/97 01/19/17 18:56 91 20 95 01/19/17 17:11 97.1 F L 96 20 176/101 98 Intake and Output 01/19/17 01/20/17 01/20/17 23:59 07:59 15:59 Output Total 600 / 600 Balance -600 / -600 Output: Urine 600 / 600 Other: Meal NPO Weight 166.3 kg 166.3 kg Patient Weight 01/20/17 23:59 Weight 166.3 kg General: Conversant, No Apparent Distress HEENT: Atraumatic, Normocephaly, Mucus Membranes Moist Neck: No JVD, Normal carotid pulses Cardiac: Reg Rate and Rhythm, Normal S1 and S2, No Murmur Lungs: Other (diminished) Neuro: Alert and responsive, No focal deficits noted Abdomen: Soft, Non-Tender Skin: No rashes noted on visualized skin Musculoskeletal: No Chest Wall Tenderness Extremities: No Clubbing, No Cyanosis, No Edema, Normal Pulses Results 01/20/17 04:43 01/20/17 04:43 Lab Results 01/20/17 01/20/17 01/20/17 04:43 04:43 04:43 WBC 11.4 H Hgb 12.6 Hct 40.8 Plt Count 323 Sodium 138 Potassium 4.6 H Chloride 105 Carbon Dioxide 20 BUN 13 Creatinine 0.86 Glucose 123 H Calcium 9.3 Magnesium 2.2 Total Bilirubin 0.3 AST 37 H ALT 56 H Alkaline Phosphatase 153 H Troponin I 0.62 H* Short CBC 01/20/17 01/20/17 01/20/17 Range/Units 04:43 04:43 04:43 WBC 11.4 H (4.3-11.1) K/mcL RBC 4.18 (3.82-4.97) M/mcL Hgb 12.6 (11.5-15.4) g/dL Hct 40.8 (35.3-44.9) % MCV 97.6 (83.0-100.0) fL MCH 30.1 (28.0-33.3) pg MCHC 30.9 L (31.6-35.5) g/dL RDW 13.0 (11.5-14.5) % Plt Count 323 (140-400) K/mcL MPV 10.2 (9.4-12.4) fL Immature Gran % 1.4 (0-4) % Seg Neutrophils % 80.3 % Lymphocytes % 12.6 % Monocytes % 4.8 % Eosinophils % 0.4 % Basophils % 0.5 % Neutrophils # 9.1 H (1.6-8.9) K/mcL Lymphocytes # 1.4 (0.6-4.6) K/mcL Monocytes # 0.6 (0.0-1.3) K/mcL Eosinophils # 0.1 (0.0-0.6) K/mcL Basophils # 0.1 (0.0-0.2) K/mcL PT (9.4-12.1) Seconds INR APTT (26.0-36.0) Seconds Sodium 138 (136-145) mEq/L Potassium 4.6 H (3.5-4.5) mEq/L Chloride 105 (98-109) mEq/L Carbon Dioxide 20 (19-29) mEq/L BUN 13 (7-20) mg/dL Creatinine 0.86 (0.57-1.11) mg/dL Est GFR ( Amer) > 60 (> 60) Est GFR (Non-Af Amer) > 60 (> 60) BUN/Creatinine Ratio 15 (6-26) Glucose 123 H (70-99) mg/dL Calculated Osmolality 287 (280-300) Calcium 9.3 (8.6-10.8) mg/dL Magnesium 2.2 (1.6-2.6) mg/dL Total Bilirubin 0.3 (0.2-1.2) mg/dL AST 37 H (5-34) Units/L ALT 56 H (0-55) Units/L Alkaline Phosphatase 153 H (38-126) Units/L Troponin I 0.62 H* (0-0.03) ng/mL Serum Total Protein 7.3 (6.0-8.3) g/dL Albumin 3.6 (3.5-5.0) g/dL Globulin 3.7 H (2.4-3.5) g/dL Albumin/Globulin Ratio 1.0 L (1.1-2.2) Triglycerides 122 (< 150) mg/dL Cholesterol 246 H (< 200) mg/dL LDL Cholesterol, Calc 171 H (0-99) mg/dL VLDL Cholesterol, Calc 24 (< 31) mg/dL HDL Cholesterol 51 (40-59) mg/dL Cholesterol/HDL Ratio 4.8 (0-4.9) 01/19/17 01/19/17 01/19/17 Range/Units 18:30 18:30 18:30 WBC 13.5 H (4.3-11.1) K/mcL RBC 3.96 (3.82-4.97) M/mcL Hgb 12.4 (11.5-15.4) g/dL Hct 38.1 (35.3-44.9) % MCV 96.2 (83.0-100.0) fL MCH 31.3 (28.0-33.3) pg MCHC 32.5 (31.6-35.5) g/dL RDW 13.1 (11.5-14.5) % Plt Count 294 (140-400) K/mcL MPV 10.2 (9.4-12.4) fL Immature Gran % 1.4 (0-4) % Seg Neutrophils % 86.9 % Lymphocytes % 7.2 % Monocytes % 3.4 % Eosinophils % 0.7 % Basophils % 0.4 % Neutrophils # 11.8 H (1.6-8.9) K/mcL Lymphocytes # 1.0 (0.6-4.6) K/mcL Monocytes # 0.5 (0.0-1.3) K/mcL Eosinophils # 0.1 (0.0-0.6) K/mcL Basophils # 0.1 (0.0-0.2) K/mcL PT (9.4-12.1) Seconds INR APTT (26.0-36.0) Seconds Sodium 137 (136-145) mEq/L Potassium 5.0 H (3.5-4.5) mEq/L Chloride 105 (98-109) mEq/L Carbon Dioxide 22 (19-29) mEq/L BUN 15 (7-20) mg/dL Creatinine 0.91 (0.57-1.11) mg/dL Est GFR ( Amer) > 60 (> 60) Est GFR (Non-Af Amer) > 60 (> 60) BUN/Creatinine Ratio 16 (6-26) Glucose 128 H (70-99) mg/dL Calculated Osmolality 286 (280-300) Calcium 9.0 (8.6-10.8) mg/dL Magnesium (1.6-2.6) mg/dL Total Bilirubin (0.2-1.2) mg/dL AST (5-34) Units/L ALT (0-55) Units/L Alkaline Phosphatase (38-126) Units/L Troponin I 0.01 (0-0.03) ng/mL Serum Total Protein (6.0-8.3) g/dL Albumin (3.5-5.0) g/dL Globulin (2.4-3.5) g/dL Albumin/Globulin Ratio (1.1-2.2) Triglycerides (< 150) mg/dL Cholesterol (< 200) mg/dL LDL Cholesterol, Calc (0-99) mg/dL VLDL Cholesterol, Calc (< 31) mg/dL HDL Cholesterol (40-59) mg/dL Cholesterol/HDL Ratio (0-4.9) /05/30 Range/Units 18:30 WBC (4.3-11.1) K/mcL RBC (3.82-4.97) M/mcL Hgb (11.5-15.4) g/dL Hct (35.3-44.9) % MCV (83.0-100.0) fL MCH (28.0-33.3) pg MCHC (31.6-35.5) g/dL RDW (11.5-14.5) % Plt Count (140-400) K/mcL MPV (9.4-12.4) fL Immature Gran % (0-4) % Seg Neutrophils % % Lymphocytes % % Monocytes % % Eosinophils % % Basophils % % Neutrophils # (1.6-8.9) K/mcL Lymphocytes # (0.6-4.6) K/mcL Monocytes # (0.0-1.3) K/mcL Eosinophils # (0.0-0.6) K/mcL Basophils # (0.0-0.2) K/mcL PT 13.3 H (9.4-12.1) Seconds INR 1.2 APTT 36.4 H (26.0-36.0) Seconds Sodium (136-145) mEq/L Potassium (3.5-4.5) mEq/L Chloride (98-109) mEq/L Carbon Dioxide (19-29) mEq/L BUN (7-20) mg/dL Creatinine (0.57-1.11) mg/dL Est GFR ( Amer) (> 60) Est GFR (Non-Af Amer) (> 60) BUN/Creatinine Ratio (6-26) Glucose (70-99) mg/dL Calculated Osmolality (280-300) Calcium (8.6-10.8) mg/dL Magnesium (1.6-2.6) mg/dL Total Bilirubin (0.2-1.2) mg/dL AST (5-34) Units/L ALT (0-55) Units/L Alkaline Phosphatase (38-126) Units/L Troponin I (0-0.03) ng/mL Serum Total Protein (6.0-8.3) g/dL Albumin (3.5-5.0) g/dL Globulin (2.4-3.5) g/dL Albumin/Globulin Ratio (1.1-2.2) Triglycerides (< 150) mg/dL Cholesterol (< 200) mg/dL LDL Cholesterol, Calc (0-99) mg/dL VLDL Cholesterol, Calc (< 31) mg/dL HDL Cholesterol (40-59) mg/dL Cholesterol/HDL Ratio (0-4.9) BMP 01/20/17 01/19/17 Range/Units 04:43 18:30 Sodium 138 137 (136-145) mEq/L Potassium 4.6 H 5.0 H (3.5-4.5) mEq/L Chloride 105 105 (98-109) mEq/L Carbon Dioxide 20 22 (19-29) mEq/L BUN 13 15 (7-20) mg/dL Creatinine 0.86 0.91 (0.57-1.11) mg/dL Glucose 123 H 128 H (70-99) mg/dL Calcium 9.3 9.0 (8.6-10.8) mg/dL Cardiac Enzymes 01/20/17 01/19/17 Range/Units 04:43 18:30 Troponin I 0.62 H* 0.01 (0-0.03) ng/mL Liver Function 01/20/17 Range/Units 04:43 Total Bilirubin 0.3 (0.2-1.2) mg/dL AST 37 H (5-34) Units/L ALT 56 H (0-55) Units/L Alkaline Phosphatase 153 H (38-126) Units/L Albumin 3.6 (3.5-5.0) g/dL Impressions Chest X-Ray 01/19/17 17:11 IMPRESSION: No evidence for acute cardiopulmonary process. D/ / Ramin Wynne MD / Ramin Wynne MD Interpreting Provider: Ramin Wynne MD Active Medications Aspirin (Aspirin) 81 mg PO DAILY [facility] Stop: 07/22/17 09:01 Last Admin: 01/20/17 09:54 Dose: 81 mg Budesonide/Formoterol Fumarate (Symbicort) 2 puff IH BIDR [facility] PRN Reason: Protocol Stop: 07/22/17 10:01 Last Admin: 01/20/17 07:50 Dose: 2 puff Clopidogrel Bisulfate (Plavix) 75 mg PO DAILY [facility] Stop: 07/22/17 09:01 Last Admin: 01/20/17 09:54 Dose: 75 mg Hydromorphone HCl (Dilaudid) 1 mg IVP Q3H PRN PRN Reason: Severe Pain Stop: 07/22/17 06:16 Last Admin: 01/20/17 06:34 Dose: 1 mg Sodium Chloride (0.9 % Sodium Chloride) 1,000 mls @ 75 mls/hr IVC .[id number] [facility] Stop: 07/22/17 04:01 Last Admin: 01/20/17 04:40 Dose: 75 mls/hr Isosorbide Mononitrate (Imdur) 120 mg PO BID [facility] Stop: 07/22/17 09:01 Last Admin: 01/20/17 09:54 Dose: 120 mg Naloxone HCl (Narcan) 0.4 mg IVP Q2MIN PRN PRN Reason: Opioid Reversal Stop: 07/22/17 03:58 Ondansetron HCl (Zofran) 4 mg IVP Q6HR PRN PRN Reason: Nausea And Vomiting Stop: 07/22/17 03:58 Last Admin: 01/20/17 04:40 Dose: 4 mg Pantoprazole Sodium (Protonix) 40 mg IVP 0630 [facility] Stop: 07/22/17 03:58 Last Admin: 01/20/17 04:40 Dose: 40 mg Promethazine HCl (Phenergan) 12.5 mg IVP Q6HR PRN PRN Reason: Nausea And Vomiting Stop: 07/22/17 06:18 Ranolazine (Ranexa) 500 mg PO BID [facility] Stop: 07/22/17 09:01 Last Admin: 01/20/17 09:54 Dose: 500 mg Rivaroxaban (Xarelto) 20 mg PO 1700 [facility] Stop: 07/22/17 17:01 - Imaging and Cardiology Chest Xray: report reviewed Echo: report reviewed Cardiac cath: report reviewed - EKG Interpretation EKG results cardiology: personally reviewed (SR), other (24 hour tele AVG HR 96 , SR, no significant pauses or arrhythmias.) Consult Discharge Plan - Plan Referrals: Sarah Vega, [employer] [Primary Care Provider] -
[2017-01-20] MEDS ORDERED: *HR* Heparin 5,000 UNIT/ML VIAL IVP ONE (10:54)
[2017-01-20] MEDS ORDERED: *HR* Heparin 5,000 UNIT/ML VIAL IVP PRN ×2 (10:54)
[2017-01-20] MEDS ORDERED: Heparin 25,000 UNIT/500 ML D5W 25,000 UNIT/500 ML MLS IVC SCH (11:00)
[2017-01-20 11:27] LABS: Hematocrit 39.8 % (35.3-44.9); Hemoglobin 12.5 g/dL (11.5-15.4); Mean Corpuscular HGB Conc 31.4 g/dL (31.6-35.5); Mean Corpuscular Hemoglobin 30.4 pg (28.0-33.3); Mean Corpuscular Volume 96.8 fL (83.0-100.0); Mean Platelet Volume 9.9 fL (9.4-12.4); Platelet Count 287 K/mcL (140-400); Red Blood Count 4.11 M/mcL (3.82-4.97); Red Cell Distribution Width 13.1 % (11.5-14.5)
[2017-01-20 11:33] LABS: INR 1.1; Prothrombin Time 12.3 Seconds (9.4-12.1)
[2017-01-20 11:36] LABS: Activated Partial Thrombo Time 31.5 Seconds (26.0-36.0)
[2017-01-20] MEDS ORDERED: Heparin 1,000 UNITS/500 mL NS 500 ML ONE ×2 (11:45→13:39)
[2017-01-20] MEDS ORDERED: Verapamil 5 MG/2 ML VIAL ONE (11:45)
[2017-01-20] MEDS ORDERED: Nitroglycerin 1,000 MCG/10 ML VIAL IV ONE (11:45)
[2017-01-20] MEDS ORDERED: 0.9 % Sodium Chloride 1,000 ML ONE (11:45)
[2017-01-20] MEDS ORDERED: *HR* Heparin 10,000 UNIT/10 ML VIAL ONE (11:45)
[2017-01-20] MEDS ORDERED: *HR* Midazolam HCl 2 MG/2 ML VIAL ONE ×2 (11:45→13:49)
[2017-01-20] MEDS ORDERED: *HR* FentaNYL (PF) 100 MCG/2 ML VIAL ONE ×2 (11:45→14:01)
[2017-01-20] MEDS: Metoprolol XL (24 HR) Succ 50 MG TAB.ER.24H PO SCH (12:15)
--- NOTE | 2017-01-20 12:24 | Pre-Sedation Evaluation ---
Pre-sedation evaluation - Pre-sedation checklist Date of procedure: 01/20/17 Procedure: LHC, +/- PCI Recent Vitals: Last Vital Signs Temp 97.3 F L 01/20/17 10:56 Pulse 105 01/20/17 10:56 Resp 20 01/20/17 10:56 BP 127/79 01/20/17 10:56 Pulse Ox 100 01/20/17 10:56 H&P (including ROS) documented in medical record: Yes Previous reaction to sedatives/anesthetics: No Dietary Status: NPO after Midnight Airway Assessment: Patient can open mouth completely, TMJ function normal Dentition: No loose teeth or bridges Possible difficult airway: No ASA Classification *see protocol: CLASS II-Mild systemic disease Plan of Care: Pt appropriate candidate for procedure/moderate/conscious sedation
[2017-01-20] MEDS ORDERED: *HR* Adenosine 6 MG/2 ML VIAL IVP ONE (13:39)
[2017-01-20] MEDS ORDERED: Ondansetron 4 MG/2 ML VIAL ONE (13:47)
--- NOTE | 2017-01-20 14:14 | Event Note ---
Date of Encounter: 01/20/17 Time of Encounter: 10:30 Patient seen and examined. On examination, patient sitting upright in bed touching television. Patient denies shortness of breath. She continues to endorse chest pain that is located sternally and radiates around under her right rib cage and into her right flank. Patient denies overt pain but states it feels more like it her chest is very sore. She states she feels like she has been "beat up." Chest x-ray negative. Initial troponin 0.01, repeat troponin 0.62. Cardiology brought on board. Patient nothing by mouth. Echocardiogram still pending. Regarding risk factor modification, patient stating that she has lost weight and is working out more. Plan is for left heart catheter later today. ITS Impressions Chest X-Ray 01/19/17 17:11 IMPRESSION: No evidence for acute cardiopulmonary process. D/ / Ramin Wynne MD / Ramin Wynne MD Interpreting Provider: Ramin Wynne MD
--- NOTE | 2017-01-20 14:38 | Procedure Note ---
Date of procedure: 01/20/17 Pre-op diagnosis: NSTEMI, CAD, ACS Post-op diagnosis: same Procedure: Procedure: LHC, SCA Access right radial artery Access left radial artery Access right common femoral artery (fluoro guided) FFR LAD PCI/stent prox LAD Selective right subclavian artery angiogram via right radial access Indication: NSTEMI ACS CAD Elevated troponin LM: no sig CAD LAD: hazy proximal 75% stenosis, patent stent in mid LAD, 30% mid LAD Cx: dominant, 20% mid stenosis RCA: non-dominant, mid 100% [employer] Right subclavian artery 100% proximal stenosis (30-40 mmHg pressure difference compared to noninvasive BP in left arm) No LVG LVEDP = 9 mmHg FFR LAD 0.69 without adenosis (+), did give IC NTG. Pulled FFR wire back with re -normalized appearing pressures when wire back in LM with re-production of markedly abnormal resting FFR when wire advanced back into LAD beyond prox LAD stenosis (c/w severe stenosis, culprit lesion for NSTEMI) PCI/stent proximal LAD with 3.0x12 Synergy JES (resteng FFR after stent 0.98) Resting FFR Cx after LAD stent 0.97 Plan: DAPT, continue ASA + plavix (re-loaded with plavix in orthodontic lab technician) Risk factor modification Wt loss Statin Tele Patient poor CABG candidate, thus PCI/stent LAD performed today (reviewed films and discussed case with Dr Guajardo during the procedure prior to FFR and PCI). Did attempt diagnostic images via right radial approach, however right subclavian 100% occluded Did attempt diagnostic images via left radial approach, did perform LHC but unable to engage RCA with JR4 catheter. Patient developed significant spasm of radial artery, sig discomfort with any attemt to torque or maneuver catheter, Issues persisted after repeat radial cocktail. Images ultimately obtained via right femoral approach. Surgeon: Hoang Parker Pathology: none sent Condition: stable Disposition: ICU
--- NOTE | 2017-01-20 15:00 | Invasive Diagnostic Lab Proc ---
Name: Kaitlynn Anguiano Date of Study: 01/20/2017 Date: 1960 Ht: 66.1in Medical Record#: [id number] Age: 56 Wt: 365.97lb Gender: Female BSA: 2.59 Order #: [id number] BMI: 58.82 Physicians Procedure Physician: Hoang Parker MD Referring MD: Sarah Vega CNP Referring MD: Staff Name Position Time In Reese Campos RN Monitor 12:30 PM Dora Hopkins RN Box Inspector 12:30 PM Aspen Hilton RT (R) Scrub 12:30 PM Indications Indication Non-Stemi Procedures Performed Procedure L HRT ARTERY/VENTRICLE ANGIO IV Doppler BLD Flow 1st Vessel PRQ CARD REVASC CO 1 VSL Pre-Procedure Checklist Informed consent is complete signed and on chart. H\\T\\P is on chart. ID band is on and ID verified with patient. Patient NPO for procedure The procedure was described for the patient and questions were answered. Blood Pressure: 141/89 ECG is on chart. Rhythm: NSR Plan of Care Patient will tolerate the procedure without complications. Adequate level of comfort will be maintained. Hemodynamics will remain stable Patient will recover from procedure without complications. Respiratory function will be maintained. Cardiac rhythm will remain stable. Patient temperature will be maintained. Patient and/or family have verbalized understanding of the procedure. Patient Education Chief Complaint/Reason for Test: Cardiac Cath Developmental Category: Adult (18-64 years) Developmentally Appropriate for Age: Yes Learning Barriers: None Education Needs: Procedure Education Method: Verbal Information Taught: Cardiac Cath Educational Evaluation: Able to repeat information Intravenous Access Time IV Size Location DC'd Fluid/Drip Rate Units RN 12:07 PM 20g 1 1/" Patent On Arrival Lt Hand 0.9NaCl 25 ml/hr Allergies simvastatin propoxyphene Erythromycin Base montelukast doxycycline Azithromycin Vital Signs Time BP (mmHg) HR (bpm) O2 Sat. RR (bpm) LOC 11:15 AM 141 / 89 105 97 % 20 5 = Fully awake and oriented or at pre-proc level 12:31 PM / % 5 = Fully awake and oriented or at pre-proc level 12:31 PM / % 4 = Oriented but drowsy 12:47 PM / % 4 = Oriented but drowsy 01:02 PM / % 5 = Fully awake and oriented or at pre-proc level 01:17 PM / % 4 = Oriented but drowsy 01:32 PM / % 4 = Oriented but drowsy 01:47 PM / % 4 = Oriented but drowsy 12:30 PM 160 / 109 119 100 % 10 12:35 PM 155 / 107 119 100 % 16 12:40 PM 158 / 99 122 100 % 18 12:45 PM 156 / 100 126 100 % 14 12:50 PM 148 / 105 126 100 % 14 12:56 PM 136 / 72 118 97 % 12 01:01 PM 154 / 82 123 98 % 23 01:06 PM 161 / 87 121 96 % 14 01:12 PM 176 / 85 124 96 % 15 01:16 PM 163 / 89 123 97 % 19 01:21 PM 150 / 78 122 95 % 13 01:27 PM 144 / 86 98 96 % 24 01:31 PM 165 / 89 115 96 % 10 01:36 PM 150 / 87 124 96 % 21 01:41 PM 164 / 84 121 94 % 10 01:46 PM 178 / 98 129 95 % 15 01:59 PM 160 / 91 126 97 % 13 02:05 PM 179 / 96 126 94 % 12 02:02 PM / % 5 = Fully awake and oriented or at pre-proc level Procedural Medications Time Medication Dose Units Method Given By 12:31 PM Oxygen 4 L/min nasal cannula Dora Hopkins RN 12:31 PM Versed 1 mg Intravenous Dora Hopkins RN 12:31 PM Fentanyl 50 mcg Intravenous Dora Hopkins RN 12:37 PM Lidocaine 2% 5 ml Subcutaneous Hoang Parker MD 12:40 PM Heparin 4000 units Nitroglycerin 200 mcg Verapamil 2.5 mg Intraarterial Hoang Parker MD 12:57 PM Lidocaine 2% 4 ml Subcutaneous Hoang Parker MD 01:00 PM Heparin 0 units Nitroglycerin 200 mcg Verapamil 2.5 mg Intraarterial Hoang Parker MD 01:12 PM Versed 1 mg Intravenous Dora Hopknis RN 01:12 PM Fentanyl 50 mcg Intravenous Dora Hopkins RN 01:19 PM Nitroglycerin 200 mcg Intraarterial Hoang Parker MD 01:29 PM Lidocaine 2% 20 ml Subcutaneous Hoang Parker MD 01:38 PM Heparin 4000 units Intravenous Dora Hopkins RN 01:47 PM Zofran 4 mg Intravenous Dora Hopkins RN 01:51 PM Nitroglycerin 200 mcg Intracoronary Hoang Parker MD 01:51 PM Versed 1 mg Intravenous Dora Hopkins RN 02:01 PM Versed 1 mg Intravenous Dora Hopkins RN 02:01 PM Fentanyl 50 mcg Intravenous Dora Hopkins RN 02:08 PM Plavix 600 mg Orally Dora Hopkins RN ASA Classification: CLASS II- Mild systemic disease (i.e. well-controlled diabetes, hypertension, asthma, cigarette smoking) Tahir Score Preprocedure Postprocedure Activity 2- Moves 4 extremities sustained head lift Activity 2- Moves 4 extremities sustained head lift Circulation 2- SBP +/= 20 points of pre-anesthetic level Circulation 2- SBP +/= 20 points of pre-anesthetic level Consciousness 2- Awake and alert oriented x 3 Consciousness 2- Awake and alert oriented x 3 O2 Saturation 2- Able to maintain O2 satruation of 92% on room air O2 Saturation 2- Able to maintain O2 satruation of 92% on room air Respiratory 2- Able to deep breathe and cough well Respiratory 2- Able to deep breathe and cough well Total Score 10 Total Score 10 Contrast Agent: Isovue Diagnostic Contrast: 306 ml Total Contrast: 306 ml Fluoro Dose: 3185 mGy Activated Clotting Time Time Seconds to Clot 01:30 PM 160 02:00 PM 343 Procedure Log Time Note Enter By 11:42 AM CathStat 12:27 PM Vitals capture started with the following parameters, Patient=Adult, Interval=5 min, Initial Mxcrcvqi=149 mmHg, Deflation Rate=5 mmHg, Cuff placed on Left Arm 12:29 PM Vitals capture stopped. 12:30 PM Pt arrived to dental laboratory assistant 2 at 12:30 [facility] 12:30 PM Reese Campos RN Position: Monitor Time in: 12:30 [facility] 12:30 PM Vitals capture started with the following parameters, Patient=Adult, Interval=5 min, Initial Wxrohwjq=840 mmHg, Deflation Rate=5 mmHg, Cuff placed on Left Arm 12:30 PM Recorded ECG: JK=328 Condition=Condition 1 12:30 PM Dora Hopkins RN Position: Box Inspector Time in: 12:30 [facility] 12:30 PM Aspen Hilton RT (R) Position: Scrub Time in: 12:30 [facility] 12:30 PM Patient charges- Angio tray pack, Navilyst 3mm J, Pulse Oximetry and ACIST tubing and transducer csmith 12:30 PM YA=920 bpm, ZAGS=724/109 mmhg, NcG0=521.0 %, Resp=10 B/min, Comment=st 12:31 PM Hair removed from procedure site in holding area using clippers. Right groin and right wrist prepped with Chloraprep by Dora Hopkins RN, patient was draped. Skin intact. csmith 12:31 PM Physician arrived 12: csmith 12:31 PM ASA Class CLASS II- Mild systemic disease (i.e. well-controlled diabetes, hypertension, asthma, cigarette smoking) csmith 12:31 PM Meet and greet completed csmith 12:31 PM Sign in performed according to hospital policy. csmith 12:31 PM Procedure start 12: csmith 12:31 PM Case Start 12: PM Time: 12:31 Oxygen on at 4 L/min per nasal cannula by Dora Hopkins RN [facility] 12: PM Time: 12:31 Versed 1 mg Intravenous Given by Dora Hopkins RN [facility] 12: PM Time: 12:31 Fentanyl 50 mcg Intravenous Given by Dora Hopkins RN [facility] 12: PM Time: 12:31 Patient comfortable and pain free: Yes [facility] 12:31 PM Time: 12:31LOC: 5 = Fully awake and oriented or at pre-proc level csmith 12:35 PM ES=761 bpm, VGPL=393/107 mmhg, RhT1=821.0 %, Resp=16 B/min, Comment=st 12:36 PM Time out performed according to hospital policy csmith 12:37 PM Pressure channel 1 zeroed. 12:37 PM Time: 12:37 5 ml Lidocaine 2% to right radial Subcutaneous Given by Hoang Parker MD [facility] 12:40 PM Access obtained by percutaneous puncture. 5/6Fr 11cm Terumo Jerome sheath placed in right Radial artery. [id number] csmith 12:40 PM BJ=992 bpm, NOPQ=038/99 mmhg, DqG3=642.0 %, Resp=18 B/min, Comment=st 12:40 PM Time: 12:40 Patient given 4,000 units Heparin, 200 mcg Nitroglycerin, and 2.5 mg Verapamil Intraarterial by Hoang Parker MD [facility] 12:42 PM 5Fr FR 4 catheter inserted over the wire DNC csmith 12:43 PM 0.035 260cm Navilyst 3mmJ wire [id number] csmith 12:43 PM NTG paste removed prior to procedure csmith 12:43 PM catheter and wire removed csmith 12:44 PM catheter reinserted csmith 12:45 PM 0.035 180cm Glidewire wire [id number] csmith 12:45 PM BU=986 bpm, IFWU=780/100 mmhg, AgB3=254.0 %, Resp=14 B/min, Comment=st 12:46 PM Time: 12:31 Patient comfortable and pain free: Yes csmith 12:47 PM Time: 12:31LOC: 4 = Oriented but drowsy csmith 12:47 PM Recorded Pressure: Ao, TM=671, Condition=Condition 1 (Aorta) Ao 114/66/86 12:50 PM WJ=185 bpm, KNOH=100/105 mmhg, QnN2=107.0 %, Resp=14 B/min, Comment=st 12:56 PM DB=984 bpm, MMLF=777/72 mmhg, SpO2=97.0 %, Resp=12 B/min, Comment=st 12:56 PM stenosis noted to subclavian artery, abandoning R radial approach, prepping L radial with CHG and drape as per right radial csmith 12:57 PM Time: 12:57 4 ml Lidocaine 2% to left radial Subcutaneous Given by Hoang Parker MD csmith 01:00 PM Access obtained by percutaneous puncture. 5/6Fr 11cm Terumo Jerome sheath placed in left Radial artery. [id number] csmith 01:01 PM Time: 13:00 Patient given 0 units Heparin, 200 mcg Nitroglycerin, and 2.5 mg Verapamil Intraarterial by Hoang Parker MD csmith 01:01 PM BN=131 bpm, JEHS=003/82 mmhg, SpO2=98.0 %, Resp=23 B/min, Comment=st 01:01 PM Time: 12:46 Patient comfortable and pain free: Yes csmith 01:02 PM Time: 12:47LOC: 4 = Oriented but drowsy csmith 01:02 PM FR4 reinserted over standard J-wire csmith 01:06 PM Recorded Pressure: Ao, NF=079, Condition=Condition 1 (Aorta) Ao 127/77/99 01:06 PM HT=806 bpm, WBXA=488/87 mmhg, SpO2=96.0 %, Resp=14 B/min, Comment=st 01:07 PM Recorded Pressure: LV, RM=271, Condition=Condition 1 (Left Ventricle) LV 145/-6/-1 01:07 PM Recorded Pressure: LV, Ao, ZP=586, Condition=Condition 1 (Left Ventricle) LV 142/-4/9, (Aorta) Ao 136/87/108 01:12 PM Time: 13:12 Versed 1 mg Intravenous Given by Dora Hopkins RN csmith 01:12 PM Time: 13:12 Fentanyl 50 mcg Intravenous Given by Dora Hopkins RN csmith 01:12 PM AZ=441 bpm, BVYX=713/85 mmhg, SpO2=96.0 %, Resp=15 B/min, Comment=st 01:16 PM BW=651 bpm, VGMY=946/89 mmhg, SpO2=97.0 %, Resp=19 B/min, Comment=st 01:16 PM Catheter removed csmith :17 PM Time: 13:01 Patient comfortable and pain free: Yes csmith :17 PM Time: 13:02LOC: 5 = Fully awake and oriented or at pre-proc level csmith 01:18 PM arterial spasm noted,ntg arterial given csmith :19 PM Time: 13:19 Nitroglycerin 200 mcg Intraarterial Given by Hoang Parker MD csmith 01:21 PM FH=211 bpm, JFNZ=753/78 mmhg, SpO2=95.0 %, Resp=13 B/min, Comment=st :25 PM At 13:30 the ACT was 160 seconds. csmith 01:25 PM spasm relieved, catheter and wire removed csmith : PM abandoning L wrist, will attempt R groin csmith 01:27 PM HR=98 bpm, WWZL=922/86 mmhg, SpO2=96.0 %, Resp=24 B/min, Comment=st 01: PM Time: 13:29 20 ml Lidocaine 2% to right groin Subcutaneous Given by Hoang Parker MD csmith 01:29 PM Access obtained by percutaneous puncture. 5Fr 10cm Terumo Jerome sheath placed in right Femoral artery. [id number] csmith 01: PM 0.035 145cm Navilyst 3mmJ wire [id number] csmith 01:30 PM Recorded Pressure: Ao, QS=971, Condition=Condition 1 (Aorta) Ao 127/83/102 01:30 PM JL 3.5 reinserted csmith 01:31 PM Recorded Pressure: Ao, UP=256, Condition=Condition 1 (Aorta) Ao 115/87/100 01:31 PM LCA angiography performed in multiple views. csmith 01:31 PM XT=368 bpm, CRDJ=257/89 mmhg, SpO2=96.0 %, Resp=10 B/min, Comment=st 01:32 PM Time: 13:17LOC: 4 = Oriented but drowsy csmith 01:32 PM Time: 13:17 Patient comfortable and pain free: Yes csmith 01:34 PM catheter removed csmith 01:34 PM JR4 reinserted csmith 01:34 PM Coronary Dominance: Left csmith 01:35 PM [facility] called to request 2N bed csmith 01:36 PM Lesion found in Mid RCA. Pre Stenosis: 100 Pre ANIRUDH Flow: 0: No Flow/No perfusion csmith 01:36 PM catheter removed csmith 01:36 PM BH=657 bpm, APJG=739/87 mmhg, SpO2=96.0 %, Resp=21 B/min, Comment=st 01:36 PM RCA angiography performed in multiple views. csmith 01:37 PM Sheath exchanged for a 6 Fr 11 cm Cordis Veronique sheath [id number] csmith 01:38 PM Time: 13:38 Heparin 4000 units Intravenous Given by Dora Hopkins RN IVP csmith 01:41 PM GL=579 bpm, NCMV=906/84 mmhg, SpO2=94.0 %, Resp=10 B/min, Comment=st 01:43 PM Pressure channel 3 zeroed. 01:45 PM [place] Prime Wire Prestige advanced to target lesion. csmith 01:45 PM Pressure channel 3 equalized to channel 1. 01:46 PM ZX=669 bpm, SUHE=127/98 mmhg, SpO2=95 %, Resp=15 B/min 01:47 PM Time: 13:32 Patient comfortable and pain free: Yes csmith 01:47 PM Time: 13:32LOC: 4 = Oriented but drowsy csmith 01:47 PM pt nauseated, will give zofran prior to FFR csmith 01:47 PM Time: 13:47 Zofran 4 mg Intravenous Given by Dora Hopkins RN csmith 01:48 PM Pressure channel 3 equalized to channel 1. 01:49 PM Recorded Pressure: Ao, Wire, SH=605, Condition=Condition 1 (Aorta) Ao 134/90/111, (FFR Wire) Wire 97/28/67 01:50 PM FFR in process. 01:50 PM Recorded Pressure: Ao, Wire, CV=836, Condition=Condition 1 (Aorta) Ao 136/91/113, (FFR Wire) Wire 100/30/69 01:50 PM Recorded Pressure: Ao, Wire, RC=969, Condition=Condition 1 (Aorta) Ao 136/90/112, (FFR Wire) Wire 114/38/81 01:51 PM Time: 13:51 Nitroglycerin 200 mcg Intracoronary Given by Hoang Parker MD csmith 01:51 PM Time: 13:51 Versed 1 mg Intravenous Given by Dora Hopkins RN csmith 01:51 PM [ Start FFR sample ] 01:52 PM Vitals capture stopped. 01:53 PM FFR: Value=0.69, Site=LAD Ost, Condition=Condition 1, Device=VOLCANO PRIME WIRE 01:53 PM Recorded Pressure: Ao, Wire, FFR=0.69, GK=714, Condition=Condition 1 (Aorta) Ao 108/72/90, (FFR Wire) Wire 97/21/65 01:54 PM FFR Measurement: 0.69 csmith 01:55 PM NIBP STAT measurement started. 01:58 PM Vitals capture stopped. 01:58 PM Vitals capture started with the following parameters, Patient=Adult, Interval=5 min, Initial Pvbyzqyi=567 mmHg, Deflation Rate=5 mmHg, Cuff placed on Left Arm 01:59 PM .014 [employer] Sherman 190cm guide wire across target lesion- successful. reused? No csmith 01:59 PM RL=000 bpm, EJJT=045/91 mmhg, SpO2=97.0 %, Resp=13 B/min, Comment=st 02:00 PM 3.0mm x 12mm Synergy bioabsorbable stent across target lesion- successful Lot #[id number] csmith 02:00 PM At 14:00 the ACT was 343 seconds. csmith 02:01 PM Time: 14:01 Versed 1 mg Intravenous Given by Dora Hopkins RN csmith 02:01 PM Time: 14:01 Fentanyl 50 mcg Intravenous Given by Dora Hopkins RN csmith 02:02 PM Stent deployed @ 16 lakhwinder for 18 seconds csmith 02:02 PM Time: 13:47LOC: 4 = Oriented but drowsy csmith 02:02 PM Time: 13:47 Patient comfortable and pain free: uncomfortable from lying on table csmith 02:02 PM Stent delivery system removed intact. csmith 02:05 PM Recorded Pressure: Ao, Wire, FFR=0.97, HA=251, Condition=Condition 1 (Aorta) Ao 120/77/97, (FFR Wire) Wire 129/66/95 02:05 PM FFR: Value=0.97, Condition=Condition 1, Device=VOLCANO PRIME WIRE 02:05 PM XC=696 bpm, SLXA=950/96 mmhg, SpO2=94 %, Resp=12 B/min 02:05 PM FFR Measurement: 0.97 proximal LAD csmith 02:06 PM FFR: Value=0.91, Condition=Condition 1, Device=VOLCANO PRIME WIRE 02:06 PM Recorded Pressure: Ao, Wire, FFR=0.91, ND=167, Condition=Condition 1 (Aorta) Ao ?/?/?, (FFR Wire) Wire ?/?/? 02:07 PM wire and guide catheter removed csmith 02:08 PM Time: 14:08 Plavix 600 mg Orally Given by Dora Hopkins RN csmith 02:10 PM Procedure completed at 14:10 csmith 02:10 PM Sign out completed: Radiation Dose 3185 mGy Fluoro Time: 18.2 Isovue 370 - 200ml contrast 306 ml given by Hoang Parker MD. Complications: NoneCardiac Rehab Consult needed: YesConfirmed administered medications: Yes csmith 02:10 PM Isovue 370 - 500ml,1 Bottle(s) used. csmith 02:10 PM Sheath left in place to be pulled on floor/holding area csmith 02:10 PM Post ECG Sinus Tachycardia csmith 02:10 PM Post Blood Pressure 179/96 csmith 02:10 PM 14:10 Post Pulses Bilateral radial 1+ csmith 02:11 PM Information taught Vasc Band, PCI, and Cardiac Cath csmith 02:11 PM Education needs Responsibilities of Patient in Care csmith 02:12 PM Learning barriers :None csmith 02:12 PM Education Methods Verbal csmith 02:12 PM Education evaluation Able to repeat information csmith 02:12 PM Opsite applied csmith 02:12 PM Plavix, Effient or Brilinta given Yes csmith 02:13 PM Family placed in consult room. csmith 02:14 PM Lesion found in Proximal LAD. Pre Stenosis: 75 Pre ANIRUDH Flow: 3: Complete and Brisk Flow/Perfusion csmith 02:15 PM Lesion found in Mid LAD. Pre Stenosis: 30 Pre ANIRUDH Flow: csmith 02:15 PM Lesion found in Mid Circumflex. Pre Stenosis: 20 Pre ANIRUDH Flow: csmith 02:17 PM Time: 14:02 Patient comfortable and pain free: Yes csmith 02:17 PM Time: 14:02LOC: 5 = Fully awake and oriented or at pre-proc level csmith 02:17 PM 15 ml air in Vasc Band - right csmith 02:17 PM 20 ml air in Vasc Band - left csmith 02:28 PM [facility] [place] [facility] called -still awaiting bed assignment csmith 02:32 PM Delay to floor Bed availability csmith 02:52 PM Report given to moris WEIR Pt taken to ICU Room #2. 14:52 csmith 02:52 PM Patient out of room: 14:52 [facility] Complications Complication None Hemodynamics Pressures Site Systolic/A Wave Diastolic/V Wave Mean AO 114 66 86 AO 127 77 99 LV 145 -6 -1 LV 142 -4 9 AO 136 87 108 AO 127 83 102 AO 115 87 100 AO 134 90 111 Wire 97 28 67 AO 136 91 113 Wire 100 30 69 AO 136 90 112 Wire 114 38 81 AO 108 72 90 Wire 97 21 65 AO 120 77 97 Wire 129 66 95 AO Wire Post Procedure Information Blood Pressure: 179/96 mmHg Rhythm: Sinus Tachycardia Post procedural instructions were given Closure Device Time Device Success/Fail 01/20/2017 2:18:00 PM Mechanical Compression Successful 01/20/2017 2:18:00 PM Mechanical Compression Successful Site Checks Time Location Status Staff Sheath In? Note 02:18 PM Rt Wrist No bleeding/ No Hematoma Aspen Hilton RT (R) 02:18 PM Lt Wrist No bleeding/ No Hematoma Aspen Hilton RT (R) 02:19 PM Rt Groin No bleeding/ No Hematoma Reese Campos RN Pulses Time Site Pre-Procedure Post-Procedure Note 01/20/2017 12:16:00 PM Bilateral radial 2+ 2:10:00 PM Bilateral radial 1+ Updated by Dora Hopkins RN on 01/20/2017 2:53:00 PM electronically signed on 01/20/2017 2:53:45 PM with status of Final
[2017-01-20] MEDS ORDERED: *HR* Rivaroxaban 10 MG TABLET PO SCH (17:00)
[2017-01-20] MEDS: Gabapentin 300 MG CAPSULE PO SCH ×2 (18:18→22:20)
[2017-01-20] MEDS: Loratadine 10 MG TABLET PO SCH (18:18)
[2017-01-20] MEDS: Methocarbamol 500 MG TABLET PO SCH ×2 (18:18→22:20)
[2017-01-20] MEDS: *HR* Rivaroxaban 10 MG TABLET PO SCH (18:18)
[2017-01-20] MEDS: Famotidine 20 MG TABLET PO SCH (22:20)
[2017-01-21 03:49] LABS: Basophils % 0.3 %; Eosinophils # 0.1 K/mcL (0.0-0.6); Eosinophils % 0.6 %; Hematocrit 34.8 % (35.3-44.9); Immature Granulocytes % 0.8 % (0-4); Lymphocytes # 1.3 K/mcL (0.6-4.6); Mean Corpuscular HGB Conc 31.6 g/dL (31.6-35.5); Mean Platelet Volume 10.3 fL (9.4-12.4); Monocytes # 0.9 K/mcL (0.0-1.3); Monocytes % 6.7 %; Neutrophils # 10.7 K/mcL (1.6-8.9); Platelet Count 283 K/mcL (140-400); Red Blood Count 3.55 M/mcL (3.82-4.97); Red Cell Distribution Width 13.3 % (11.5-14.5); Segmented Neutrophils % 81.6 %
[2017-01-21 04:02] LABS: BUN/Creatinine Ratio 19 (6-26); Blood Urea Nitrogen 16 mg/dL (7-20); Calcium 8.8 mg/dL (8.6-10.8); Carbon Dioxide 22 mEq/L (19-29); Chloride 104 mEq/L (98-109); Glucose 109 mg/dL (70-99); Osmolality,Calculated 286 (280-300); Potassium 4.7 mEq/L (3.5-4.5); Sodium 137 mEq/L (136-145); eGFR For African Americans > 60 (> 60); eGFR For Non-African Americans > 60 (> 60)
[2017-01-21] MEDS: Pantoprazole 40 MG VIAL IVP SCH (06:09)
[2017-01-21] MEDS: 0.9 % Sodium Chloride 1,000 ML IVC SCH ×2 (06:10→06:14)
[2017-01-21] MEDS: Budesonide/Formoterol 160/4.5 MDI IH SCH ×2 (07:48→20:53)
[2017-01-21] MEDS: Isosorbide MONOnitrate (24 HR) 60 MG TAB.ER.24H PO SCH ×2 (07:49→21:04)
[2017-01-21] MEDS: Methocarbamol 500 MG TABLET PO SCH ×3 (07:49→21:04)
[2017-01-21] MEDS: Ranolazine 500 MG TAB.ER.12H PO SCH ×2 (07:49→21:04)
[2017-01-21] MEDS: Aspirin 81 MG TAB.CHEW PO SCH (07:49)
[2017-01-21] MEDS: Metoprolol XL (24 HR) Succ 50 MG TAB.ER.24H PO SCH (07:49)
[2017-01-21] MEDS: Gabapentin 300 MG CAPSULE PO SCH ×3 (07:50→21:04)
[2017-01-21] MEDS: FLUoxetine 20 MG CAPSULE PO SCH (07:50)
[2017-01-21] MEDS: Loratadine 10 MG TABLET PO SCH (07:50)
[2017-01-21] MEDS: Famotidine 20 MG TABLET PO SCH ×2 (07:50→21:04)
[2017-01-21] MEDS: *HR* HYDROmorphone (PF) 1 MG/ML SYRINGE IVP PRN ×2 (07:51→17:28)
[2017-01-21] MEDS ORDERED: Metoprolol XL (24 HR) Succ 50 MG TAB.ER.24H PO SCH (07:59)
[2017-01-21] MEDS ORDERED: Perflutren Lipid Microsphere 1.3 ML in 0.9 % Sodium Chloride 8.7 ML IVP ONE (09:06)
[2017-01-21] MEDS ORDERED: Perflutren Lipid Microsphere 2 ML VIAL ONE (09:08)
--- NOTE | 2017-01-21 09:15 | Internal Med Progress Note ---
Date of Encounter: 01/21/17 Time of Encounter: 09:13 - Assessment and plan (1) NSTEMI (non-ST elevated myocardial infarction) Current Visit: Yes Status: Acute Assessment and plan: s/p [facility] with stent Continue BB, Statin, dual antiplatelet therapy Increase metoprolol to 150, she still has tachhycardia ECHO has been done, follow report Peak trop 28 cardiology is on board, appreciate recommendations (2) Celiac disease Current Visit: Yes Status: Chronic Assessment and plan: Chornic, stable (3) Deep vein thrombosis of lower extremity Current Visit: Yes Status: Chronic Assessment and plan: Chronic, recurrent on Xarelto lifelong Continue same Qualifiers: Affected thrombotic vein of extremity: unspecified vein of extremity Laterality: unspecified laterality Chronicity: chronic Qualified Code(s): I82.509 - Chronic embolism and thrombosis of unspecified deep veins of unspecified lower extremity (4) CAD (coronary artery disease) Current Visit: No Status: Chronic Assessment and plan: As in NSTEMI Previous stent is patent per [facility] Qualifiers: Coronary Disease-Associated Artery/Lesion type: false pass artery [place] vs. transplanted heart: false pass heart Associated angina: without angina Qualified Code(s): I25.10 - Atherosclerotic heart disease of [place] coronary artery without angina pectoris (5) COPD with asthma Current Visit: Yes Status: Chronic Assessment and plan: Continue symbicort daily Albuterol prn (6) GERD (gastroesophageal reflux disease) Current Visit: Yes Status: Chronic Assessment and plan: resume home meds Qualifiers: Esophagitis presence: esophagitis presence not specified Qualified Code(s) : K21.9 - Gastro-esophageal reflux disease without esophagitis - Subjective Interval history: 56 Y/O f with Morbid obesity, CAD s/p stent, Hx of DVT, HTN, She is being managed for NSTEMI She is s/p [facility] 01/20 with stent to LAD Seen at bedside Complained of shoulder pain, no chest pain, also complained or R leg pain Doppler USS has been ordered - Constitutional Vitals: Temp Pulse Resp BP Pulse Ox 98.5 F 115 18 127/81 94 01/21/17 07:08 01/21/17 07:59 01/21/17 07:49 01/21/17 07:08 01/21/17 07:49 General appearance: Present: cooperative, A&O X 3, morbidly obese, pleasant, no acute distress - Head Head exam: Present: atraumatic, normocephalic - Eye Eye exam: Present: PERRL, conjuntiva pink, sclera anicteric Pupils: Present: PERRL - Neck Neck exam general surgery: Present: supple, trachea midline. Absent: lymphadenopathy - Respiratory Respiratory exam: Present: CTAB. Absent: accessory muscle use, rales, rhonchi, wheezes - Cardiovascular Cardiovascular exam: Present: RRR, +S1, +S2. Absent: diastolic murmur, gallop, rubs, systolic murmur - GI/Abdominal GI/Abdominal exam: Present: normal bowel sounds, soft, no peritoneal signs. Absent: distended, tenderness - Extremities Exam Extremities exam: Present: warm, radial pulses palpable and symetrical. Absent : calf tenderness, cyanotic, pedal edema - Neurological Exam Neurological exam: Present: alert, CN II-XII intact, oriented X3, no focal deficits. Absent: pronater drift, facial droop, speech deficit - Skin Skin exam: Present: dry, intact Internal Medicine: Result - Labs CBC & Chem 7: 01/21/17 03:17 01/21/17 03:17 Labs: Short CBC 01/21/17 Range/Units 03:17 WBC 13.1 H (4.3-11.1) K/mcL Hgb 11.0 L D (11.5-15.4) g/dL Hct 34.8 L (35.3-44.9) % Plt Count 283 (140-400) K/mcL Neutrophils # 10.7 H (1.6-8.9) K/mcL BMP 01/21/17 03:17 Sodium 137 Potassium 4.7 H Chloride 104 Carbon Dioxide 22 BUN 16 Creatinine 0.83 Glucose 109 H Calcium 8.8 - ABG Interpretation ABG results: PT/INR, D-dimer PT 12.3 Seconds (9.4-12.1) H 01/20/17 11:20 - VTE Reasons for not Prescribing Prophylaxis: Not indicated-Anticoagulated or INR therapeutic Consult Discharge Plan - Plan Referrals: Sarah Vega CNP [Primary Care Provider] - 01/25/17 1:00 pm Edwin Patrick MD [Partnered Physician] - 02/08/17 1:05 pm (this appointment for the [facility])
--- NOTE | 2017-01-21 09:17 | Electrocardiograph Report ---
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
--- NOTE | 2017-01-21 09:59 | Cardiology Progress Note ---
Date of Encounter: 01/21/17 Time of Encounter: 09:57 Assessment and Plan (1) NSTEMI (non-ST elevated myocardial infarction) Current Visit: Yes Status: Acute Troponins 0.00, 0.62, 1.51, 28.58. [facility] yesterday revealed severe 1 vessel CAD, s/p successful PTCA/JES in proximal LAD. Stent placed from prior procedure in mid LAD patent. FRAME TRIMMER of mid RCA. Echo pending. Echo 2014 EF preserved. DAPT (ASA and Plavix) uninterrupted x 1 year. Pt verbalizes understanding. Contineu Statin, BB, nitrates. Will continue to follow since echo is pending and ordering lower extremity dopplers for right calf pain. Anticipate sign off tomorrow. Bilateral radial and right femoral access sites healing well. No bleeding or hematoma noted. Mild ecchymosis. 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 On Xarelto 20mg daily at home. Typically takes Xarelto at 9AM--dose held yesterday AM for [facility], but resumed yesterday evening. Pt reports right calf pain this AM. Will obtain lower extremity dopplers to rule out DVT. Qualifiers: DVT location: lower extremity Affected thrombotic vein of extremity: unspecified vein of extremity Laterality: unspecified laterality Chronicity : unspecified Qualified Code(s): I82.409 - Acute embolism and thrombosis of unspecified deep veins of unspecified lower extremity (3) CAD (coronary artery disease) Current Visit: No Status: Chronic ASA, Plavix, Statin, BB, nitrates. Qualifiers: Coronary Disease-Associated Artery/Lesion type: [place] artery [place] vs. transplanted heart: [place] heart Associated angina: without angina Qualified Code(s): I25.10 - Atherosclerotic heart disease of [place] coronary artery without angina pectoris (4) Tachycardia Current Visit: Yes Status: Resolved 24 hour tele AVG HR 120, sinus tach. No worsening dyspnea. Highest temp noted 99.3. On Lopressor 75mg BID at home. Currently on Toprol XL 100mg daily. Will increase to 150mg. Continue to monitor. (5) Stenosis of right subclavian artery Current Visit: Yes Status: Acute 100% right subclavian stenosis on [facility]. Can follow-up as outpt. Discussion w patient/family: The assessment and plan as outlined above was discussed with the patient and/or family members who expressed understanding and agreement. All questions were answered. Thank you for involving us in the care of your patient. Please call with any questions. I will discuss all the above with Dr. Patrick and make changes as necessary. Subjective Principal diagnosis: NSTEMI Interval history: Troponins 0.01, 0.62, 1.51, 28.58. S/P C yesterday--severe 1 vessel CAD, s/p successful PTCA/JES in proximal LAD. Stent placed from prior procedure in mid LAD patent. FRAME TRIMMER of mid RCA. Pt reports chest pain is now gone. She continues to have right shoulder pain. Reports right calf pain. Echo pending. Objective Vital Signs, Last 4 Hours Temp Pulse Resp BP Pulse Ox 01/21/17 09:40 110 111/66 01/21/17 07:59 115 01/21/17 07:49 18 94 01/21/17 07:08 98.5 F 120 18 127/81 98 Vital Signs Temp Pulse Pulse Resp BP Pulse Ox 01/21/17 09:40 110 111/66 01/21/17 07:59 115 01/21/17 07:49 18 94 01/21/17 07:08 98.5 F 120 18 127/81 98 01/21/17 03:34 97.9 F 120 15 124/87 95 01/21/17 01:25 121 01/20/17 23:43 97.9 F 128 17 114/78 95 01/20/17 21:55 16 94 01/20/17 18:58 99.3 F 117 16 143/90 98 01/20/17 18:30 118 144/96 01/20/17 18:15 118 139/94 01/20/17 18:00 119 130/97 01/20/17 17:45 97.4 F L 121 20 120/78 97 01/20/17 17:30 125 16 150/101 96 01/20/17 17:25 125 127 16 136/98 95 01/20/17 17:20 124 127 16 152/88 95 01/20/17 17:15 126 127 16 161/90 95 01/20/17 16:50 126 127 16 143/91 96 01/20/17 16:30 127 127 16 155/106 95 01/20/17 16:15 127 124 16 141/112 94 01/20/17 16:10 126 124 16 174/113 95 01/20/17 15:30 122 16 163/112 93 01/20/17 15:15 121 124 16 148/110 93 01/20/17 15:13 120 119 20 136/111 99 01/20/17 15:05 120 119 20 163/118 99 01/20/17 15:00 98.8 F 120 119 20 171/100 97 01/20/17 10:56 97.3 F L 105 20 127/79 100 Intake and Output 01/20/17 01/21/17 01/21/17 23:59 07:59 15:59 Intake Total 1600 / 1600 1000 / 1000 0 / 0 Output Total 900 / 900 Balance 700 / 700 1000 / 1000 0 / 0 Intake: IV Fluids 1000 / 1000 1000 / 1000 0.9 % Sodium Chloride 1, 1000 / 1000 1000 / 1000 000 ML @ 75 mls/hr IVC . [id number] TAMMY Rx#: [id number] Oral 600 / 600 0 / 0 Output: Urine 900 / 900 Other: Meal Breakfast Percent of Meal Consumed 0% Weight 166.4 kg Patient Weight 01/21/17 23:59 Weight 166.4 kg General: Conversant, No Apparent Distress HEENT: Atraumatic, Normocephaly, Mucus Membranes Moist Neck: No JVD, Normal carotid pulses Cardiac: Reg Rate and Rhythm, Normal S1 and S2, No Murmur Lungs: Other (diminished) Neuro: Alert and responsive, No focal deficits noted Abdomen: Soft, Non-Tender Skin: Other (bilateral radial and right femoral access sites healing well. Mild ecchymosis, no bleeding or hematoma noted.) Musculoskeletal: No Chest Wall Tenderness Extremities: No Clubbing, No Cyanosis, No Edema, Normal Pulses Results 01/21/17 03:17 01/21/17 03:17 Lab Results 01/21/17 01/21/17 03:17 03:17 WBC 13.1 H Hgb 11.0 L D Hct 34.8 L Plt Count 283 Sodium 137 Potassium 4.7 H Chloride 104 Carbon Dioxide 22 BUN 16 Creatinine 0.83 Glucose 109 H Calcium 8.8 - Imaging and Cardiology Echo: pending Cardiac cath: report reviewed - EKG Interpretation EKG results cardiology: other (24 hour tele AVG HR 120) - VTE Reasons for not Prescribing Prophylaxis: Not indicated-Anticoagulated or INR therapeutic Consult Discharge Plan - Plan Referrals: Sarah Vega CNP [Primary Care Provider] - 01/25/17 1:00 pm Edwin Patrick MD [Partnered Physician] - 02/08/17 1:05 pm (this appointment for the [place] office)
[2017-01-21] MEDS ORDERED: Metoprolol XL (24 HR) Succ 50 MG TAB.ER.24H PO ONE (10:10)
--- NOTE | 2017-01-21 11:05 | ECHO - Doppler Report ---
Echo with Imaging Enhancement Agent Name: Kaitlynn Anguiano Date of Study: 01/21/2017 Date: 1960 Ht: 66.0 in Medical Record#: [id number] Age: 56 Wt: 366.0 lb Gender: Female BSA: 2.59 Order #: [id number] Location: [facility] Room #: 2N01 Reading Physician: Ammon Guajardo DO, FACC, LINN Supervisor Special Effects: Viktoriya Randall RVT, RD Ordering Physician: Bran Anderson MD Primary Physician: Sarah Vega CNP Indications: Myocardial infarction Impressions: Technically sub-optimal due to body habitus and poor echocardiographic windows. Sinus tachycardia. LVEF 55%. Normal LV chamber size and function. Mild concentric left ventricular hypertrophy. Indeterminate diastolic function. Right ventricle was not well visualized. Aortic valve not well visualized. Mild aortic sclerosis suggested by Doppler. Mean gradient 10 mmHg. This could also be generated by hyperdynamic flow due to sinus tachycardia. Mild pulmonary hypertension. Estimated RVSP is 39 mmHg. Left Ventricular Wall Motion: Rest Echo Findings All wall segments showed normal motion. Findings: Study Quality * Technically sub-optimal due to body habitus and poor echocardiographic windows. ECG Findings * Sinus tachycardia. Left Ventricle * LVEF 55%. * Normal LV chamber size and function. * Mild concentric left ventricular hypertrophy. * Indeterminate diastolic function. Right Ventricle * Right ventricle was not well visualized. Left Atrium * Moderately dilated left atrium. Right Atrium * Mildly dilated right atrium. Interatrial Septum * Interatrial septum not well evaluated. Aortic Valve * Aortic valve not well visualized. * No aortic regurgitation. * Mild aortic sclerosis suggested by Doppler. Mean gradient 10 mmHg. This could also be generated by hyperdynamic flow due to sinus tachycardia. Mitral Valve * Mild mitral annular calcification. * Mitral valve leaflets not well visualized. * No mitral regurgitation. * No mitral stenosis. Tricuspid Valve * Tricuspid valve not well visualized. * Trace tricuspid regurgitation. * Mild pulmonary hypertension. * Estimated RVSP is 39 mmHg. * Estimated RA pressure is 5 mmHg. Pulmonic Valve * Pulmonic valve not well visualized. Aorta * Normally sized aortic root. Pericardium * The pericardium appears normal. IVC * The IVC is not well evaluated. Pulmonary Artery * Pulmonary artery not well visualized. History Hypertension History of CAD/PTCA Myocardial Infarction 06-03-2015 a Previous Echo was performed. Contrast: Definity 1.3 ml in 8.7 ml of saline 3 ml. Measurements: BP: 111/ 66 2D Normal Values RVIDd: 1.90 cm <2.7 cm IVSd: 1.30 cm 0.6 - 1.0 cm LVIDd: 4.60 cm 3.7 - 5.6 cm LVPWd: 1.30 cm 0.6 - 1.1 cm LVIDs: 3.80 cm 1.5 - 3.6 cm AO: 3.00 cm < 4.0 cm LA: 4.20 cm 2.0 - 4.0cm %FS: 17.40 cm >25 % LVOT Diam: 2.00 cm LA volume: 59 Mitral Valve Dec Time:137.00 msec Peak E:1.06 m/sec Peak E' Lat Sharan:8.58 cm/s Peak E' Med Sharan:9.07 cm/s E/E' Lat Ratio:12.4 E/E' Med Ratio:11.7 LVOT Peak Sharan:.80 m/sec Mean Sharan:.52 m/sec Peak Grad:3.00 mmHg Mean Grad:1.00 mmHg Aortic Valve Peak Sharan:2.08 m/sec Mean Sharan:1.51 m/sec Peak Grad:17.00 mmHg Mean Grad:10.00 mmHg Valve Area:1.50 cm2 Tricuspid Valve TV Regurg Peak Grad: 34.00mmHg TV Regurg Peak Sharan: 2.92m/sec Updated by Ammon Guajardo DO, FACMigdalia, CHELE ESTEVES on 01/21/2017 10:58:20 AM electronically signed on 01/21/2017 11:00:06 AM with status of Final Wall Motion Roy: 1=Normal, 2=Hypokinesis, 3=Akinesis, 4=Dyskinesis, 5=Aneurysmal, 6=Hyperkinetic, X=Not Visualized (Blank)=Missing
[2017-01-21] MEDS: *HR* Rivaroxaban 10 MG TABLET PO SCH (17:28)
[2017-01-22] MEDS: *HR* HYDROmorphone (PF) 1 MG/ML SYRINGE IVP PRN (04:41)
[2017-01-22] MEDS: Pantoprazole 40 MG VIAL IVP SCH (06:05)
[2017-01-22] MEDS: Isosorbide MONOnitrate (24 HR) 60 MG TAB.ER.24H PO SCH (07:59)
[2017-01-22] MEDS: Aspirin 81 MG TAB.CHEW PO SCH (07:59)
[2017-01-22] MEDS: FLUoxetine 20 MG CAPSULE PO SCH (07:59)
[2017-01-22] MEDS: Loratadine 10 MG TABLET PO SCH (07:59)
[2017-01-22] MEDS: Methocarbamol 500 MG TABLET PO SCH (07:59)
[2017-01-22] MEDS: Famotidine 20 MG TABLET PO SCH (07:59)
[2017-01-22] MEDS: Budesonide/Formoterol 160/4.5 MDI IH SCH (08:00)
[2017-01-22] MEDS: Ranolazine 500 MG TAB.ER.12H PO SCH (08:00)
[2017-01-22] MEDS: Gabapentin 300 MG CAPSULE PO SCH (08:00)
--- NOTE | 2017-01-22 08:38 | Cardiology Progress Note ---
Date of Encounter: 01/22/17 Time of Encounter: 08:32 Assessment and Plan (1) NSTEMI (non-ST elevated myocardial infarction) Current Visit: Yes Status: Acute Troponins 0.00, 0.62, 1.51, 28.58. [facility] revealed severe 1 vessel CAD, s/p successful PTCA/JES in proximal LAD. Stent placed from prior procedure in mid LAD patent. 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 Echo EF 55%, mild LVH, mild , mild pulmonary hypertension. DAPT (ASA and Plavix) uninterrupted x 1 year. Pt verbalizes understanding. Contineu Statin, BB, nitrates. Bilateral radial and right femoral access sites healing well. No bleeding or hematoma noted. Mild ecchymosis. Cardiology signing off. Reconsult PRN. Follow-up as outpt in 1 week. Will coordinate. 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 On Xarelto 20mg daily at home. Typically takes Xarelto at 9AM--dose held 4/9 AM for [facility], but resumed that evening. Pt reported right calf pain yesterday, now resolved. Lower extremity preliminary dopplers were negative for DVT. Qualifiers: DVT location: lower extremity Affected thrombotic vein of extremity: unspecified vein of extremity Laterality: unspecified laterality Chronicity : unspecified Qualified Code(s): I82.409 - Acute embolism and thrombosis of unspecified deep veins of unspecified lower extremity (3) CAD (coronary artery disease) Current Visit: No Status: Chronic ASA, Plavix, Statin, BB, nitrates. Qualifiers: Coronary Disease-Associated Artery/Lesion type: [place] artery [place] vs. transplanted heart: [place] heart Associated angina: without angina Qualified Code(s): I25.10 - Atherosclerotic heart disease of [place] coronary artery without angina pectoris (4) Tachycardia Current Visit: Yes Status: Resolved 24 hour tele AVG HR 93, sinus. Was on Lopressor 75mg BID at home. Was started on Toprol XL yesterday, increased to 150mg daily to equal home dose. (5) Stenosis of right subclavian artery Current Visit: Yes Status: Acute 100% right subclavian stenosis on [facility]. Can follow-up as outpt. Discussion w patient/family: The assessment and plan as outlined above was discussed with the patient and/or family members who expressed understanding and agreement. All questions were answered. Thank you for involving us in the care of your patient. Please call with any questions. I will discuss all the above with Dr. Virginia Barnard and make changes as necessary. Subjective Principal diagnosis: NSTEMI Interval history: Troponins 0.01, 0.62, 1.51, 28.58. S/P LHC --severe 1 vessel CAD, s/p successful PTCA/JES in proximal LAD. Stent placed from prior procedure in mid LAD patent. 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 Pt reports chest pain is now gone. She continues to have right shoulder pain. Reported right calf pain yesterday, now resulted. Lower extremity dopplers negative. Echo EF 55%, mild LVH, mild aortic sclerosis , mild phtn. Objective Vital Signs, Last 4 Hours Temp Pulse Resp BP Pulse Ox 01/22/17 08:01 12 95 01/22/17 07:26 98.1 F 93 12 96/54 95 Vital Signs Temp Pulse Resp BP Pulse Ox 01/22/17 08:01 12 95 01/22/17 07:26 98.1 F 93 12 96/54 95 01/22/17 03:38 99.0 F 96 14 128/73 98 01/21/17 23:09 98.5 F 94 16 108/62 93 01/21/17 20:53 16 95 01/21/17 18:56 99.0 F 86 13 100/78 95 01/21/17 15:30 88 01/21/17 15:20 98.4 F 90 18 98/62 100 01/21/17 11:20 101 01/21/17 11:15 97.3 F L 98 18 124/68 100 01/21/17 09:40 110 111/66 Intake and Output 01/21/17 01/22/17 01/22/17 23:59 07:59 15:59 Intake Total 650 / 650 Output Total 750 / 750 700 / 700 Balance -100 / -100 -700 / -700 Intake: Oral 650 / 650 Output: Urine 750 / 750 700 / 700 Other: Meal Dinner Percent of Meal Consumed 40% Weight 174.3 kg Patient Weight 01/22/17 23:59 Weight 174.3 kg General: Conversant, No Apparent Distress HEENT: Atraumatic, Normocephaly, Mucus Membranes Moist Neck: No JVD, Normal carotid pulses Cardiac: Reg Rate and Rhythm, Normal S1 and S2, No Murmur Lungs: Normal Breath Sounds, No Wheeze, Rales, Rhonchi Neuro: Alert and responsive, No focal deficits noted Abdomen: Soft, Non-Tender Skin: No rashes noted on visualized skin Musculoskeletal: No Chest Wall Tenderness Extremities: No Clubbing, No Cyanosis, No Edema, Normal Pulses Results 01/21/17 03:17 01/21/17 03:17 Active Medications Ascorbic Acid (Vitamin C) 500 mg PO DAILY [facility] Stop: 07/24/17 09:01 Last Admin: 01/22/17 08:01 Dose: 500 mg Aspirin (Aspirin) 81 mg PO DAILY [facility] Stop: 07/22/17 09:01 Last Admin: 01/22/17 07:59 Dose: 81 mg Atorvastatin Calcium (Lipitor) 40 mg PO HS [facility] Stop: 07/22/17 21:01 Last Admin: 01/21/17 21:04 Dose: 40 mg Budesonide/Formoterol Fumarate (Symbicort) 2 puff IH BIDR [facility] PRN Reason: Protocol Stop: 07/22/17 10:01 Last Admin: 01/22/17 08:00 Dose: 2 puff Clopidogrel Bisulfate (Plavix) 75 mg PO DAILY [facility] Stop: 07/22/17 09:01 Last Admin: 01/22/17 07:59 Dose: 75 mg Cyanocobalamin (Vitamin B12) 1,000 mcg PO DAILY [facility] Stop: 07/24/17 09:01 Last Admin: 01/22/17 08:00 Dose: 1,000 mcg Cyclobenzaprine HCl (Flexeril) 10 mg PO TID [facility] Stop: 07/22/17 21:46 Last Admin: 01/22/17 07:59 Dose: 10 mg Dicyclomine HCl (Bentyl) 20 mg PO QID PRN PRN Reason: Abdominal Pain Stop: 07/22/17 14:06 Diltiazem HCl (Cardizem) 30 mg PO Q8H [facility] Stop: 07/22/17 22:01 Last Admin: 01/22/17 06:05 Dose: 30 mg Famotidine (Pepcid) 20 mg PO BID [facility] Stop: 07/22/17 21:01 Last Admin: 01/22/17 07:59 Dose: 20 mg Fluoxetine HCl (Prozac) 40 mg PO QAM [facility] Stop: 07/23/17 09:01 Last Admin: 01/22/17 07:59 Dose: 40 mg Gabapentin (Neurontin) 300 mg PO TID [facility] Stop: 07/22/17 15:01 Last Admin: 01/22/17 08:00 Dose: 300 mg Hydromorphone HCl (Dilaudid) 1 mg IVP Q3H PRN PRN Reason: Severe Pain Stop: 07/22/17 06:16 Last Admin: 01/22/17 04:41 Dose: 1 mg Isosorbide Mononitrate (Imdur) 120 mg PO BID [facility] Stop: 07/22/17 09:01 Last Admin: 01/22/17 07:59 Dose: 120 mg Loratadine (Claritin) 10 mg PO DAILY [facility] PRN Reason: Protocol Stop: 07/22/17 14:16 Last Admin: 01/22/17 07:59 Dose: 10 mg Methocarbamol (Robaxin) 500 mg PO TID [facility] Stop: 07/22/17 15:01 Last Admin: 01/22/17 07:59 Dose: 500 mg Metoprolol Succinate (Toprol Xl) 150 mg PO DAILY [facility] Stop: 07/24/17 09:01 Last Admin: 01/22/17 08:00 Dose: 150 mg Naloxone HCl (Narcan) 0.4 mg IVP Q2MIN PRN PRN Reason: Opioid Reversal Stop: 07/22/17 03:58 Ondansetron HCl (Zofran) 4 mg IVP Q6HR PRN PRN Reason: Nausea And Vomiting Stop: 07/22/17 03:58 Last Admin: 01/20/17 04:40 Dose: 4 mg Pantoprazole Sodium (Protonix) 40 mg IVP 0630 [facility] Stop: 07/22/17 03:58 Last Admin: 01/22/17 06:05 Dose: 40 mg Pharmacy Profile Note (Patient Taking Own Medication) 0 each PO DAILY [facility] Stop: 07/24/17 09:01 Last Admin: 01/22/17 08:01 Dose: Not Given Promethazine HCl (Phenergan) 12.5 mg IVP Q6HR PRN PRN Reason: Nausea And Vomiting Stop: 07/22/17 06:18 Ranolazine (Ranexa) 500 mg PO BID [facility] Stop: 07/22/17 09:01 Last Admin: 01/22/17 08:00 Dose: 500 mg Rivaroxaban (Xarelto) 20 mg PO 1700 [facility] Stop: 07/22/17 17:01 Last Admin: 01/21/17 17:28 Dose: 20 mg - Imaging and Cardiology Echo: report reviewed Cardiac cath: report reviewed - EKG Interpretation EKG results cardiology: other (24 hour tele AVG HR 93, SR, no significant pauses or arrhythmias.) - VTE Reasons for not Prescribing Prophylaxis: Not indicated-Anticoagulated or INR therapeutic Consult Discharge Plan - Plan Referrals: Sarah Vega CNP [Primary Care Provider] - 01/25/17 1:00 pm Edwin Patrick MD [Partnered Physician] - 02/08/17 1:05 pm (this appointment for the [facility])
[2017-01-22] MEDS ORDERED: (Febuxostat [Uloric] 40 MG) PO SCH (09:00)
[2017-01-22] MEDS ORDERED: Metoprolol XL (24 HR) Succ 50 MG TAB.ER.24H PO SCH (09:00)
[2017-01-22] MEDS ORDERED: Ascorbic Acid 500 MG TABLET PO SCH (09:00)
[2017-01-22] MEDS ORDERED: Cyanocobalamin (B-12) 1,000 MCG TABLET PO SCH (09:00)
[2017-01-22 09:05] LABS: Basophils % 0.3 %; Eosinophils # 0.2 K/mcL (0.0-0.6); Eosinophils % 1.9 %; Hematocrit 29.2 % (35.3-44.9); Immature Granulocytes % 1.3 % (0-4); Immature Platelets 3.1 % (1.1-6.1); Lymphocytes # 1.3 K/mcL (0.6-4.6); Lymphocytes % 14.6 %; Mean Corpuscular HGB Conc 31.8 g/dL (31.6-35.5); Mean Corpuscular Hemoglobin 30.9 pg (28.0-33.3); Mean Platelet Volume 9.9 fL (9.4-12.4); Monocytes # 0.8 K/mcL (0.0-1.3); Monocytes % 9.1 %; Neutrophils # 6.7 K/mcL (1.6-8.9); Platelet Count 238 K/mcL (140-400); Red Blood Count 3.01 M/mcL (3.82-4.97); Red Cell Distribution Width 13.2 % (11.5-14.5); Segmented Neutrophils % 72.8 %
[2017-01-22 09:11] LABS: Hemoglobin 9.3 g/dL (11.5-15.4)
[2017-01-22 09:18] LABS: BUN/Creatinine Ratio 20 (6-26); Blood Urea Nitrogen 15 mg/dL (7-20); Calcium 8.8 mg/dL (8.6-10.8); Carbon Dioxide 22 mEq/L (19-29); Chloride 107 mEq/L (98-109); Glucose 101 mg/dL (70-99); Osmolality,Calculated 287 (280-300); Potassium 4.5 mEq/L (3.5-4.5); Sodium 138 mEq/L (136-145); eGFR For African Americans > 60 (> 60); eGFR For Non-African Americans > 60 (> 60)
--- NOTE | 2017-01-22 10:45 | Discharge Summary ---
Date of Encounter: 01/22/17 Time of Encounter: 10:00 - Discharge Diagnosis (1) NSTEMI (non-ST elevated myocardial infarction) Priority: Primary Status: Acute (2) Tachycardia Priority: Primary Status: Resolved (3) Stenosis of right subclavian artery Priority: Secondary Status: Acute (4) DVT (deep venous thrombosis) Priority: Secondary Status: Chronic Qualifiers: DVT location: lower extremity Affected thrombotic vein of extremity: unspecified vein of extremity Laterality: unspecified laterality Chronicity : unspecified Qualified Code(s): I82.409 - Acute embolism and thrombosis of unspecified deep veins of unspecified lower extremity - Discharge Medications Prescriptions: Metoprolol XL (24 HR) Succ [Toprol Xl] 150 mg PO DAILY #30 tab.er.24h Home Medications: Aspirin 81 mg PO DAILY 07/30/15 [History] Budesonide/Formoterol 160/4.5 [Symbicort] 2 puff IH BIDR 07/30/15 [History] Clopidogrel [Plavix] 75 mg PO DAILY 07/30/15 [History] Diltiazem [Cardizem] 30 mg PO Q8HR PRN 07/30/15 [History] Febuxostat [Uloric] 40 mg PO DAILY 07/30/15 [History] Furosemide [Lasix] 20 mg PO DAILY 07/30/15 [History] Loratadine [Claritin] 10 mg PO DAILY 07/30/15 [History] Methocarbamol [Robaxin] 500 mg PO TID 07/30/15 [History] Ranolazine [Ranexa] 500 mg PO BID 07/30/15 [History] Albuterol Sulfate [Albuterol Inhaler] 2 puff IH Q4H PRN 01/20/17 [History] Ascorbic Acid [Vitamin C] 500 mg PO DAILY 01/20/17 [History] Cholecalciferol (Vitamin D3) [Dialyvite Vitamin D3 Max] 50,000 unit PO QWEEK 06/30 [History] Cyanocobalamin (B-12) [Vitamin B12] 1,000 mcg PO DAILY 01/20/17 [History] Dexlansoprazole [Dexilant] 60 mg PO DAILY 01/20/17 [History] Dicyclomine [Bentyl] 20 mg PO QID PRN 01/20/17 [History] FLUoxetine HCl [Fluoxetine HCl] 40 mg PO QAM 01/20/17 [History] Ferrous Sulfate [Iron] 325 mg PO DAILY 01/20/17 [History] Gabapentin [Neurontin] 300 mg PO TID 01/20/17 [History] Isosorbide MONOnitrate [Isosorbide Mononitrate ER] 240 mg PO DAILY 01/20/17 [ History] Nitroglycerin [Nitrostat] 0.4 mg SL Q5M PRN 01/20/17 [History] Ranitidine HCl [Acid Administrative Office Assistant] 150 mg PO BID 01/20/17 [History] Metoprolol XL (24 HR) Succ [Toprol Xl] 150 mg PO DAILY #30 tab.er.24h 01/22/17 [ Rx] Rivaroxaban [Xarelto] 10 mg PO 1700 #0 tablet 01/22/17 [Rx] Allergies/Adverse Reactions: Allergies Erythromycin Base Allergy (Verified 06/12/15 18:00) Anaphylaxis propoxyphene [From Darvon] Allergy (Verified 06/12/15 18:00) Hives doxycycline Adverse Reaction (Verified 11/27/16 08:33) Difficulty Breathing ferric carboxymaltose [From Injectafer] Adverse Reaction (Verified 12/31/16 15: 47) Gastrointestinal Upset montelukast [From Singulair] Adverse Reaction (Verified 11/27/16 08:33) Confusion simvastatin Adverse Reaction (Verified 11/27/16 08:33) Cramping of the Muscles Procedures/tests Complete & Pending: Procedures Performed prior 72 hours Category Date Time Status EV echocardiogram w enhance Routine Y 01/21/17 07:00 Completed Venous Doppler [EV venous imaging LE BI] Routine Y 01/21/17 10:11 Completed Date of admission: 01/20/17 20:11 Primary care physician: Sarah Vega CNP Discharging clinician: Jasmyne Kaur Anticipated date of discharge: 01/22/17 - Patient Status Disposition: Home, Self-Care Condition: Good Functional capacity at discharge: independent ambulation Overall status at discharge: patient is back to baseline - Discharge Instructions Instructions: Myocardial Infarction (DC), Heart Healthy Diet (DC) Follow Up With: Sarah Vega CNP [Primary Care Provider] - 01/25/17 1:00 pm Edwin Patrick MD [Partnered Physician] - 02/08/17 1:05 pm ([facility] Additional Instructions: RISK FACTORS: STOP SMOKING: If you smoke, STOP. Smoking or tobacco use significantly increases your risk of heart disease because nicotine causes the arteries to narrow or constrict. It also causes fats to stick to the artery. Your chances of having a heart attack are greatly increased if you continue to smoke. For more information, call the education line for smoking cessation 6-901-[id number] EAT A LOW FAT/CHOLESTEROL/SODIUM DIET: This diet may help reduce your chances of having a heart attack. LIFTING: Avoid lifting anything more than 10 pounds for 5-7 days Prior to straining, laughing, sneezing and/or coughing, apply manual pressure directly over insertion site. ACTIVITY: You may walk or climb stairs as tolerated You can resume sexual activity as tolerated In general, you are encouraged to engage in a minimum of 30 minutes or more of moderate intensity physical activity, such as brisk walking, daily or at least 3 -4 times weekly BATHING Do not submerge the site into water (bath tub, hot tub, swimming pool) for 1 week. This can be a source for infection into the blood stream. You may shower after 24 hours SITE CARE: After 24 hours, you may remove the dressing and leave the site open to air. Keep the site clean and dry. Clean gently and pat dry. You can expect bruising and tenderness that gradually resolve within a week or two. Return to work as instructed per your physician Resume driving as instructed per physician Keep all scheduled follow up appointments Resume medications as instructed IMPORTANT: If prescribed a Platelet Aggregation Inhibitor such as, Plavix, Brilinta or Effient: Duration of therapy is minimum one year These medications are often used in combination with Aspirin in prevention of future heart attacks Never discontinue unless consult with your Steam Drier Tender STROKE (CVA) Risk factors for a stroke are: Age, cigarette smoking, diabetes, excessive alcohol consumption, family history, high blood pressure, overweight, physical inactivity, prior stroke, heart attack, diagnosis of carotid artery stenosis or other artery disease. Warning signs: Sudden numbness or weakness of the face, arm or leg; especially on one side of the body, sudden confusion, trouble speaking or understanding, sudden trouble seeing in one or both eyes, sudden trouble walking, dizziness, loss of balance or coordination, sudden severe headache with no cause. Call 911 or go to the Emergency Room. CONGESTIVE HEART FAILURE: If you have been diagnosed with Congestive Heart Failure (CHF) and your symptoms return, make an appointment with your physician Weigh yourself daily. Notify your physician if you have a weight gain of two or more pounds in one day or five or more pounds in one week. If you experience any difficulty breathing, please call 911 BLEEDING: Although the risk of bleeding is minimal, it can happen. If you have any bleeding from the site, apply firm pressure above the puncture site for 10-15 minutes. If the bleeding does not stop, continue manual pressure and call 911 Contact your physician if: You develop a fever greater than 101 degrees Fahrenheit Your site becomes reddened or has any drainage You have an increase in pain or burning at the site or if a large knot forms at the site. If you experience chest pain, shortness of breath, dizziness, or extreme tiredness, stop the activity and rest. Please notify your physicians office if you experience any of these symptoms and they are not relieved by rest please call 911! - Diet and Activity Activity: increase activity as tolerated Diet: low fat, low cholesterol, low salt diet Interval History: Ms. Anguiano is a 56 year old female who presents with complaints of chest pain and dyspnea. She has been having this pain off and on for months but it was worse tonight, and this prompted her to come to the ER. Workup was negative. Nonetheless, she was admitted to the hospitalist service. Upon my assessment of the patient, she is complaining of pain in her right side of her chest. She has some associated nausea and diaphoresis. She states the pain is not the same as her prior anginal pain and/or WI. She denies any hemoptysis. She has some mild exertional dyspnea. She denies any fevers, chills, cough, or chest congestion. She has been battling right shoulder issues and has been referred for shoulder surgery in the recent past. She denies any known gallbladder problems. She states she has been worked up for gallbladder numerous times without any diagnosis. Food does not seem to exacerbate her chest pain symptoms. Hospital course: Ms. Anguiano is a 56 year old female admitted for chest pain to rule out ACS. She was tracked the 3 sets of troponin which was elevated. She was diagnosed as NSTEMI. Cardiology consult was called and patient has a catheterization. After treatment, patient is stable, no further chest pain. Cardiology saw patient again and sign off. Recommend continue current treatment and follow-up as outpatient. Patient has a tachycardia at the beginning, which improved after catheterization. US legs negative to DVT b/L. I saw and examined the patient today. She is awake alert, oriented 3. Denies shortness of breath or chest pain. Vitals are stable. Patient is stable to discharge home and follow up with cardiology as outpatient. 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 Will continue same dose. Metoprolol XL has been tended to 150 mg by mouth daily per cardiology. - Time Spent with Patient Total time spent providing and/or coordinating discharge services: 40 minutes Greater than 30 minutes - Constitutional Vitals: Temp Pulse Resp BP Pulse Ox 98.1 F 97 12 96/54 95 01/22/17 07:26 01/22/17 08:44 01/22/17 08:01 01/22/17 07:26 01/22/17 08:01 General appearance: Present: cooperative, A&O X 3, morbidly obese, pleasant, no acute distress - Head Head exam: Present: atraumatic, normocephalic - Eye Eye exam: Present: PERRL, conjuntiva pink, sclera anicteric Pupils: Present: PERRL - Neck Neck exam general surgery: Present: supple, trachea midline. Absent: lymphadenopathy - Respiratory Respiratory exam: Present: CTAB. Absent: accessory muscle use, rales, rhonchi, wheezes - Cardiovascular Cardiovascular exam: Present: RRR, +S1, +S2. Absent: diastolic murmur, gallop, rubs, systolic murmur - GI/Abdominal GI/Abdominal exam: Present: normal bowel sounds, soft, no peritoneal signs. Absent: distended, tenderness - Extremities Exam Extremities exam: Present: warm, radial pulses palpable and symetrical. Absent : calf tenderness, cyanotic, pedal edema - Neurological Exam Neurological exam: Present: CN II-XII intact, oriented X3, no focal deficits. Absent: pronater drift, facial droop, speech deficit - Skin Skin exam: Present: dry, intact - VTE Reasons for not Prescribing Prophylaxis: Not indicated-Anticoagulated or INR therapeutic
[2017-01-22 10:58] VITALS: BP 96/54
--- NOTE | 2017-01-22 17:58 | Venous Imaging Report ---
LE Venous Duplex Patient Name:Kaitlynn Anguiano Order Number:[id number] Procedure Date:01/21/2017 Date:1Age:56 yrs Gender:Female Location:[facility] Room #: 2N01 Wafer Mounter:Evelyne Mullennaveen Referring MD:Domenic Velásquez CNP vp software support:Sarah Vega CNP Reading MD:Nabeel Huitron MD Primary Indications:RLE pain, HX of recurrent DVT Secondary Indications: Risk Factors Yes/No Hx of DVT Yes Anticoagulants Yes Impressions: Normal bilateral lower extremity deep and superficial venous exam. Recommendations: After imaging the patient returned to their room. Findings Venous Duplex Results: Right: Venous imaging of the lower extremity reveals full patency and normal vessel compressibility of the right distal iliac, right common femoral, right superficial femoral, right popliteal, right posterior tibial, right peroneal, right great saphenous and right lesser saphenous. Doppler signals in the evaluated veins were normal. Left: Venous imaging of the lower extremity reveals full patency and normal vessel compressibility of the left distal iliac, left common femoral, left superficial femoral, left popliteal, left posterior tibial, left peroneal, left great saphenous and left lesser saphenous. Doppler signals in the evaluated veins were normal. Lower Extremity Venous Duplex Side Vein Compress Spontaneous Flow Augment Diameter (cm) Depth (cm) Right Distal Iliac Normal Yes Phasic Yes Right Common Femoral Normal Yes Phasic Yes Right Superficial Femoral Normal Yes Phasic Yes Right Popliteal Normal Yes Phasic Yes Right Posterior Tibial Normal Yes Phasic Yes Right Peroneal Normal Yes Phasic Yes Right Great Saphenous Normal Yes Phasic Yes Right Lesser Saphenous Normal Yes Phasic Yes Left Distal Iliac Normal Yes Phasic Yes Left Common Femoral Normal Yes Phasic Yes Left Superficial Femoral Normal Yes Phasic Yes Left Popliteal Normal Yes Phasic Yes Left Posterior Tibial Normal Yes Phasic Yes Left Peroneal Normal Yes Phasic Yes Left Great Saphenous Normal Yes Phasic Yes Left Lesser Saphenous Normal Yes Phasic Yes Updated by Nabeel Huitron MD on 01/22/2017 5:53:05 PM electronically signed on 01/22/2017 5:54:05 PM with status of Final
== END 2017-01-22 11:35 | disposition home or self-care (01) | DRG 247 ==
LOC: 3BNU 17:03 → EMEROO 17:03 → 3BNU 21:20 → ICNU 01-20 14:48 → 2NNU 01-20 17:46 → SUATTDRO 01-20 20:11
PROVIDERS: ADMIT Internal Medicine; ATTEND Internal Medicine